=== PATIENT | female | born 1950 | race African-American/Black ===

== ENCOUNTER → 2024-03-24 08:26 | Outpatient (REF) | payer OTHER, SELFPAY | LOC: RAD 08:26 | PROVIDERS: ATTENDING PHYSICIAN Internal Medicine Hematology & Oncology; FAMILY PHYSICIAN Family Medicine | DX: I82.402 Acute embolism and thrombosis of unspecified deep veins of left lower extremity (principal) | CPT/HCPCS: 93971 ==

== ENCOUNTER → 2024-03-27 06:26 | Day surgery (SDC) | payer OTHER, SELFPAY | LOC: GI 06:26 | PROVIDERS: ATTENDING PHYSICIAN Internal Medicine Gastroenterology | DX: Z12.11 Encounter for screening for malignant neoplasm of colon (principal); K64.8 Other hemorrhoids; K57.30 Diverticulosis of large intestine without perforation or abscess without bleeding; D12.0 Benign neoplasm of cecum; D12.2 Benign neoplasm of ascending colon; Z86.010 Personal history of colon polyps | CPT/HCPCS: 45385; 45380; 88305 ==

== ENCOUNTER → 2024-04-07 11:23 | Outpatient (REF) | payer OTHER, SELFPAY | LOC: HWWDC 11:23 | PROVIDERS: ATTENDING PHYSICIAN Family Medicine | DX: Z12.31 Encounter for screening mammogram for malignant neoplasm of breast (principal) | CPT/HCPCS: 77063; 77067 ==

== ENCOUNTER 2025-07-03 18:26 | Emergency (ER) | payer OTHER, SELFPAY ==
[2025-07-03 18:29] VITALS: BP 142/101
--- NOTE | 2025-07-03 23:24 | ED.GENMED ---
History of Present Illness
<Pepito Jacobson MD, Resident - Last Filed: 07/04/25 00:08>
General
Chief Complaint: DVT/Possible Blood Clot
Source: patient
Exam Limitations: none
Time Seen by Provider: 07/03/25 22:54
History of Present Illness
History of Present Illness:
Patient is a 75-year-old female who presents to the emergency department with complaints of left foot swelling and left leg pain for greater than 1 week. She has a history of antiphospholipid antibody syndrome, hypercholesterolemia,
osteoporosis, history of shingles, hypertensive retinopathy, and posterior vitreous detachment. She was in her normal state of health prior to 1 week ago when she started to feel swelling with dull aggravating pain on her inner thigh of her left
leg that started after she went to workout at the gym. The dull pain has been ongoing with waxing and waning depending on physical activity. 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
them on the phone she shared her symptoms of left leg swelling and pain with the office who recommended that she present to the emergency department for further evaluation. She denies any shortness of breath, chest tightness, or chest pain. She
denies any nausea vomiting or diarrhea. She denies any reduction in range of motion.
Past History
<Pepito Jacobson MD, Resident - Last Filed: 07/04/25 00:08>
Past History
ED Past Medical History: None
Social History
Tobacco: Non-smoker
Personal:
Living: with family
Review of Systems
<Pepito Jacboson MD, Resident - Last Filed: 07/04/25 00:08>
Review of Systems
Constitutional: Reports no symptoms
EENT: Reports no symptoms
Respiratory: Reports no symptoms
Cardiac: Reports no symptoms
ABD/GI: Reports no symptoms
: Reports no symptoms
Musculoskeletal: Reports muscle pain ( Pain in the left lower leg inner thigh and calf.)
Skin: Reports no symptoms
Neurological: Reports no symptoms
Endocrine: Reports no symptoms
Hematologic/Lymphatic: Reports no symptoms
Psychiatric: Reports no symptoms
Phy Exam
<Pepito Jacobson MD, Resident - Last Filed: 07/04/25 00:08>
General Physical Exam
General Presentation: well appearing and no apparent distress
General age: appears stated age and appears younger than age
General Skin: warm
General Habitus: normal
General Mental: alert
General Hydration: appears well hydrated
Cardiovascular Exam
Cardiovascular Exam: regular rate/rhythm, no edema, no gallop, no JVD and no murmur
Pulmonary Exam
Pulmonary Exam: lungs clear, no respiratory distress, no rales, chest non tender, no crackles, no rhonchi, no stridor, no wheezing and no cough
Musculoskeletal Exam
Musculoskeletal Exam: full ROM, no edema and neuro vasc intact
Course
<Pepito Jacobson MD, Resident - Last Filed: 07/04/25 00:08>
Orders/Labs/Results
Orders:
Orders
07/03/25 18:33
US Periph Venous LOWER Ext LT Urgent
Comment:
Reason For Exam: swelling, r/o dvt
Vital Signs
Initial and Last Documented VS:
Initial Vital Signs
Temp Pulse Resp BP Pulse Ox
98.3 F 67 18 142/101 99
07/03/25 18:29 07/03/25 18:29 07/03/25 18:29 07/03/25 18:29 07/03/25 18:29
Last Documented Vital Signs
Temp Pulse Resp BP Pulse Ox
98.3 F 67 18 142/101 99
07/03/25 18:29 07/03/25 18:29 07/03/25 18:29 07/03/25 18:29 07/03/25 23:25
<DO Dot Martin Last Filed: 07/03/25 23:29>
Orders/Labs/Results
Orders:
Orders
07/03/25 18:33
US Periph Venous LOWER Ext LT Urgent
Comment:
Reason For Exam: swelling, r/o dvt
Vital Signs
Initial and Last Documented VS:
Initial Vital Signs
Temp Pulse Resp BP Pulse Ox
98.3 F 67 18 142/101 99
07/03/25 18:29 07/03/25 18:29 07/03/25 18:29 07/03/25 18:29 07/03/25 18:29
Last Documented Vital Signs
Temp Pulse Resp BP Pulse Ox
98.3 F 67 18 142/101 99
07/03/25 18:29 07/03/25 18:29 07/03/25 18:29 07/03/25 18:29 07/03/25 23:25
<Pepito Jacobson MD, Resident - Last Filed: 07/04/25 00:08>
*Pulse Oximetry
SaO2: 99
Oxygen Mode of Delivery: Room air
Patient hypoxic: no
*Critical Care Note
Total Time (30-74mins, 75-104mins- exclusive of procedures): 60
<Pepito Jacobson MD, Resident - Last Filed: 07/04/25 00:08>
Update Note
Update Note:
Problem List:
Left lower leg pain
Plan:
left lower leg ultrasound ordered
Differential Diagnoses:
left leg DVT
left leg musculoskeletal pain
Radiology:
- peripheral ultrasound of the left lower limb conducted on 07/03/2025: There is a nonocclusive thrombus within the left mid/distal left femoral vein and peroneal vein which is stable to improved from prior examination in 2023.
EKG: Not applicable
Labs: not applicable
Updates:
physical exam findings do not support evidence of acute DVT occurring. There is no discernible left leg swelling when compared to the right leg. There is no erythema or reduction in palpable pulses. There is strong palpable dorsal pedal pulses.
patient appears nontoxic and is not in distress. Patient is lying comfortably in bed.
Ultrasound of left lower limb negative for acute DVT. There is a nonocclusive thrombus within the left mid/distal left femoral vein and peroneal vein which is stable to improved from prior examination in 2023.
Patient would like to be discharged. There are no barriers that impede the patient for being discharged at the present time.
Contacted the office of her manufacturing teacher with updates during this presentation to the Emergency department.
Patient recommended to follow-up with her manufacturing teacher within 1 week following discharge. Patient is recommended to follow-up with her primary care provider within 1 week following discharge.
ED Attending Note
<Pepito Jacobson MD, Resident - Last Filed: 07/04/25 00:08>
-
Portions of this chart may have been created with voice recognition software.� Occasional wrong word or��sound alike� substitutions may have occurred due to the inherent limitations of voice recognition software.
<Jayro Johnson DO - Last Filed: 07/03/25 23:29>
ED Attending Note
Patient seen and examined by attending physician: Yes
I performed a history and physical exam of patient and discussed management with resident, I reviewed resident's note and agree with documented findings and plan of care.: Yes
ED Attending Note:
Seen with resident examined independently agree with assessment and plan DVT on Eliquis 5 twice daily similar less severe symptoms, no phlegmasia on exam, no cellulitis, ultrasound report noted will touch base with the referring service,
Discharge Plan
Departure
Patient Disposition: Home (Routine Discharge)
Date of Disposition: 07/03/25
Time of Disposition: 23:47
Patient with high blood pressure during this ER visit?: No
Discharge Problem:
Leg DVT (deep venous thromboembolism), chronic
Instructions: Peripheral Vascular (Arterial) Disease (DC), Deep Vein Thrombosis (Blood Clots in the Legs) (DC)
Prescriptions:
No Action
apixaban [Eliquis DVT-PE Treat 30D Start] 5 MG tablets,dose pack
5 - 10 mg PO DIRECTED Qty: 1 0RF
Referrals:
Kyle Friend DO [Active, Hematology / Oncology] - Follow up in 1 week
Cristóbal Qiu DO [Family Provider, Family Practice] - Follow up in 1 week
Interventions
Interventions:
*Risk Screen - Suicide Last Done: 07/03/25 18:29
*General Assessment Last Done: 07/03/25 18:29
*Neglect/Abuse Screening Last Done: 07/03/25 18:29
Discharge Date and Time
Print Language: FRENCH
[2025-07-03 23:40] VITALS: BP 154/86
[2025-07-03 23:46] VITALS: BMI 30.2
== END 2025-07-04 00:15 | disposition home or self-care (01) ==
LOC: EMR 18:26
PROVIDERS: EMERGENCY PHYSICIAN Emergency Medicine; FAMILY PHYSICIAN Family Medicine
DX: I82.502 Chronic embolism and thrombosis of unspecified deep veins of left lower extremity (principal); E78.00 Pure hypercholesterolemia, unspecified
CPT/HCPCS: 99284; 93971

== ENCOUNTER → 2025-09-05 10:37 | Outpatient (REF) | payer OTHER, SELFPAY | LOC: PAVMRI 10:37 | PROVIDERS: ATTENDING PHYSICIAN Physical Medicine & Rehabilitation | DX: M23.91 Unspecified internal derangement of right knee (principal) | CPT/HCPCS: 73721 ==

== ENCOUNTER 2025-10-07 14:30 | Inpatient (IN) | payer OTHER, SELFPAY ==
[2025-10-07 07:02] VITALS: BP 123/68
[2025-10-07 07:19] LABS: Hematocrit 32.7 % (37.0-47.0); Hemoglobin 11.1 g/dL (12.0-16.0); Mean Corp Hgb Conc. 33.9 g/dL (33.0-37.0); Mean Corpuscular Volume 84.9 fL (81.0-99.0); Nucleated Red Blood Cells % 0 %; Platelet Count 255 10^3/uL (130-400); Red Cell Dist. Width 17.0 % (11.5-14.5)
--- NOTE | 2025-10-07 09:13 | ED.GENMED ---
History of Present Illness
<MARGARITA Ty Last Filed: 10/07/25 11:31>
General
Chief Complaint: Change in Mental Status
Source: patient
Exam Limitations: none
Time Seen by Provider: 10/07/25 08:44
History of Present Illness
History of Present Illness:
75-year-old female presents via EMS with generalized weakness and change in mental status. The who is now in the room states that over the past 2 to 3 days she has not seemed herself. She sat on the toilet and was sitting on the toilet for
some time and could not get up. He states that she was not responding to his questions at home. Patient is not providing me any history either. Her thinks she takes Eliquis but is not sure why.
Past History
<MARGARITA Ty Last Filed: 10/07/25 11:31>
Past History
ED Past Medical History: None
Social History
Tobacco: Non-smoker
Personal:
Living: with family
Phy Exam
<MARGARITA Ty Last Filed: 10/07/25 11:31>
Physical Exam
Physical Exam:
General: Well-developed female no acute respiratory distress
Neurologic exam: Unresponsive to verbal stimuli but wakes up to sternal rub. No obvious facial asymmetry. Not following commands.
Heart: Regular rate and rhythm
Lungs: Clear no wheeze
Abdomen is soft nontender
Extremities: No cyanosis or edema
Skin is warm no rash
Course
<MARGARITA Ty Last Filed: 10/07/25 11:31>
Orders/Labs/Results
Orders:
Orders
10/07/25 07:09
Electrocardiogram (*1) Urgent
Reason for Study: Fatigue / Weakness
EKG- Treatment ONCE
10/07/25 07:13
Complete Blood Count/With Diff Urgent
10/07/25 09:12
Electrocardiogram (*1) Urgent
Reason for Study: Fatigue / Weakness
CT Head W/o Iv Contrast Urgent
Comment:
Reason For Exam: change of mental status
EKG- Treatment ONCE
10/07/25 09:24
Comprehensive Metabolic Panel Urgent
10/07/25 10:11
Drug Screen, Urine [Urine Drug Abuse Screen] Urgent
Date Specimen was Collected: 10/07/25
Time Specimen was Collected: 10:10
Urinalysis Reflex To Culture Urgent
Date Specimen was Collected: 10/07/25
Time Specimen was Collected: 10:10
Urine Microscopic Reflex Cult Urgent
Urine Culture Urgent
ANDRES Source: U
Specimen Description:
Date Specimen was Collected: 10/07/25
Time Specimen was Collected: 10:10
Abnormal Lab Results
10/07/25 10/07/25 10/07/25
07:13 09:24 10:11
RBC 3.85 L 10^6/uL
(4.20-5.40)
Hgb 11.1 L g/dL
(12.0-16.0)
Hct 32.7 L %
(37.0-47.0)
RDW 17.0 H %
(11.5-14.5)
Abs Immat Gran (auto) 0.1 H 10^3/uL
(0-0.05)
Absolute Neuts (auto) 7.8 H 10^3/uL
(1.4-6.5)
Absolute Monos (auto) 1.1 H 10^3/uL
(0.1-0.6)
Neutrophils % 75.7 H %
(42.2-75.2)
Lymphocytes % 12.4 L %
(20.5-51.1)
Monocytes % 10.5 H %
(1.7-9.3)
Carbon Dioxide 17 L mmol/L
(22-30)
BUN 33 H mg/dl
(7-17)
Glucose 109 H mg/dl
(70-99)
AST 42 H U/L
(14-36)
Urine Ketones 2+ A
(Negative)
Ur Occult Blood Reflex 1+ A
(Negative)
Urine Bilirubin 1+ A
(Negative)
Urine RBC 3-6 A /HPF
(0-2)
Urine Bacteria (Reflex) Moderate A
(Negative)
Urine Albumin (Reflex) 2+ A
(Neg - Trace)
10/07/25 07:13
10/07/25 09:24
Vital Signs
Initial and Last Documented VS:
Initial Vital Signs
Temp Pulse Resp BP Pulse Ox
98.0 F 87 16 123/68 98
10/07/25 07:02 10/07/25 07:02 10/07/25 07:02 10/07/25 07:02 10/07/25 07:02
Last Documented Vital Signs
Temp Pulse Resp BP Pulse Ox
97.7 F 80 15 139/65 97
10/07/25 10:13 10/07/25 10:00 10/07/25 10:00 10/07/25 10:00 10/07/25 09:45
<Jigar Shelton, DO - Last Filed: 10/07/25 09:35>
Orders/Labs/Results
Orders:
Orders
10/07/25 07:09
Electrocardiogram (*1) Urgent
Reason for Study: Fatigue / Weakness
EKG- Treatment ONCE
10/07/25 07:13
Complete Blood Count/With Diff Urgent
10/07/25 09:12
Electrocardiogram (*1) Urgent
Reason for Study: Fatigue / Weakness
CT Head W/o Iv Contrast Urgent
Comment:
Reason For Exam: change of mental status
EKG- Treatment ONCE
10/07/25 09:24
Comprehensive Metabolic Panel Urgent
10/07/25 10:11
Drug Screen, Urine [Urine Drug Abuse Screen] Urgent
Date Specimen was Collected: 10/07/25
Time Specimen was Collected: 10:10
Urinalysis Reflex To Culture Urgent
Date Specimen was Collected: 10/07/25
Time Specimen was Collected: 10:10
Urine Microscopic Reflex Cult Urgent
Urine Culture Urgent
ANDRES Source: U
Specimen Description:
Date Specimen was Collected: 10/07/25
Time Specimen was Collected: 10:10
Abnormal Lab Results
10/07/25 10/07/25 10/07/25
07:13 09:24 10:11
RBC 3.85 L 10^6/uL
(4.20-5.40)
Hgb 11.1 L g/dL
(12.0-16.0)
Hct 32.7 L %
(37.0-47.0)
RDW 17.0 H %
(11.5-14.5)
Abs Immat Gran (auto) 0.1 H 10^3/uL
(0-0.05)
Absolute Neuts (auto) 7.8 H 10^3/uL
(1.4-6.5)
Absolute Monos (auto) 1.1 H 10^3/uL
(0.1-0.6)
Neutrophils % 75.7 H %
(42.2-75.2)
Lymphocytes % 12.4 L %
(20.5-51.1)
Monocytes % 10.5 H %
(1.7-9.3)
Carbon Dioxide 17 L mmol/L
(22-30)
BUN 33 H mg/dl
(7-17)
Glucose 109 H mg/dl
(70-99)
AST 42 H U/L
(14-36)
Urine Ketones 2+ A
(Negative)
Ur Occult Blood Reflex 1+ A
(Negative)
Urine Bilirubin 1+ A
(Negative)
Urine RBC 3-6 A /HPF
(0-2)
Urine Bacteria (Reflex) Moderate A
(Negative)
Urine Albumin (Reflex) 2+ A
(Neg - Trace)
10/07/25 07:13
10/07/25 09:24
Vital Signs
Initial and Last Documented VS:
Initial Vital Signs
Temp Pulse Resp BP Pulse Ox
98.0 F 87 16 123/68 98
10/07/25 07:02 10/07/25 07:02 10/07/25 07:02 10/07/25 07:02 10/07/25 07:02
Last Documented Vital Signs
Temp Pulse Resp BP Pulse Ox
97.7 F 80 15 139/65 97
10/07/25 10:13 10/07/25 10:00 10/07/25 10:00 10/07/25 10:00 10/07/25 09:45
<Ra Antoine PA-C - Last Filed: 10/07/25 11:31>
MDM/Problems Addressed
Differential Diagnosis Includes:
Patient with change in mental status. Will check labs urine CT EKG. Patient does respond to sternal rub but falls asleep shortly after that. Will check drug screen. Review of chart demonstrates she was had a DVT of the left leg and is on Eliquis
for that.
<Ra Antoine PA-C - Last Filed: 10/07/25 11:31>
*Pulse Oximetry
SaO2: 98
Oxygen Mode of Delivery: Room air
Patient hypoxic: no
*Critical Care Note
Total Time (30-74mins, 75-104mins- exclusive of procedures): Not Applicable
<Ra Antoine PA-C - Last Filed: 10/07/25 11:31>
Update Note
Update Note:
Patient reexamined. She did wake up at some point was able to answer my questions and follow commands but did fall back asleep. Vital signs remained stable. Drug screen negative CT of the head demonstrates bilateral areas of hypoattenuation to
suggest acute or subacute ischemia. Given anticoagulants on board and duration of symptoms, she is not a TNK candidate
Discussed with emergency room attending who saw the patient. Admit to hospitalist. Neurologist made aware as well
ED Attending Note
<Ra Antoine PA-C - Last Filed: 10/07/25 11:31>
-
Portions of this chart may have been created with voice recognition software.� Occasional wrong word or��sound alike� substitutions may have occurred due to the inherent limitations of voice recognition software.
<Jigar Shelton DO - Last Filed: 10/07/25 09:35>
ED Attending Note
Patient seen and examined by attending physician: Yes
I performed the substantive portion of visit, reviewed & personally made and approve the management plan that is documented in note by myself or SHAYY.: Yes
ED Attending Note:
I evaluated the patient at bedside. The patient primarily keeps her eyes closed. She will slightly turn her head when her speaks. does not have a med list but thinks she may be on Eliquis. She seems to resist certain motions when
I examine her. She forcefully closes her eyes when I try to open the eyelids. Patient was started on Eliquis in June related to DVT.
Discharge Plan
Departure
Patient Disposition: Admit
Date of Disposition: 10/07/25
Time of Disposition: 11:30
Presentation/result/management discussed w/ accepting MD/DO: Hospitalist
Discharge Problem:
Altered mental status
Prescriptions:
No Action
apixaban [Eliquis DVT-PE Treat 30D Start] 5 MG tablets,dose pack
5 - 10 mg PO DIRECTED Qty: 1 0RF
Referrals:
UNKNOWN - PT NOT,INTERVIEWE [Family Provider]
Interventions
Interventions:
*General Assessment Last Done: 10/07/25 07:02
*Neglect/Abuse Screening Last Done: 10/07/25 07:02
*Risk Screen - Suicide (C-SSRS) Last Done: 10/07/25 07:08
Discharge Date and Time
Print Language: ALBANIAN
[2025-10-07 09:56] LABS: ALT (SGPT) 16 U/L (0-35); AST (SGOT) 42 U/L (14-36); Albumin 4.3 g/dl (3.5-5.0); Alkaline Phosphatase 40 U/L (38-126); Blood Urea Nitrogen 33 mg/dl (7-17); Calcium 9.7 mg/dl (8.4-10.2); Carbon Dioxide 17 mmol/L (22-30); Chloride 104 mmol/L (98-107); Glucose 109 mg/dl (70-99); Potassium 3.9 mmol/L (3.5-5.1); Sodium 136 mmol/L (135-145); Total Protein 7.2 g/dl (6.3-8.2); eGFR 58.75
[2025-10-07 10:00] VITALS: BP 139/65
[2025-10-07 10:13] VITALS: BMI 24.2
[2025-10-07 10:19] LABS: Urine Character Clear (Clear)
[2025-10-07 10:30] LABS: Urine Squamous Cell >30 /LPF (Few)
[2025-10-07 11:00] VITALS: BP 129/66
--- NOTE | 2025-10-07 11:47 | CON.NEURO4 ---
Addendum entered and electronically signed by Amado Cannon MD 10/07/25 17:09:
Studies reviewed.
I have personally examined the patient. I reviewed and agree with the NAPPER FIXER's Note.
My addenda:
Awake, bradyphrenic, minimally interactive. No acute distress.
Speech minimal output.
Follows 1-step requests w/o difficulty. No tremor.
Extra-ocular movements grossly intact.
Facial movements full and symmetric. Hearing intact to normal conversational volume.
Spontaneously has UE movements bilaterally.
Neck: full ROM.
Chest: no dyspnea
Heart: no JVD
Ext: (-) Clubbing, (-) Cyanosis, (-) Edema
IMPRESSIONS/RECOMMENDATIONS:
Abrupt onset of decline in mental status more consistent with abulia. Patient's onset of symptoms was outside possible treatment with either tenecteplase or mechanical thrombectomy.
CT of head evidence of bifrontal medial acute ischemic lesions consistent with stroke. CTA was suggestive of significant bilateral A1 stenoses
When possible, restart the patient's apixaban as the onset of stroke may have been greater than 24 hours
Check lipid profile and provide lipid-lowering agent if LDL greater than 70
Goal of normotension as the patient's onset of symptoms was greater than 24 hours
Rehabilitation evaluations and treatment
Medical educational materials to be provided
No indication at this time for transthoracic echocardiogram
DVT prophylaxis either with the use of apixaban or enoxaparin
D/W patient / family
All questions answered.
Will continue to follow patient.
Original Note:
Documented by User: Mami Miller NP 10/07/25 15:44
Consultation - Neurology 4
-
CONSULTING PHYSICIAN: Amado Cannon MD
REFERRING PHYSICIAN: YOLY/Tyrell Antoine
DICTATED BY: SANDRA Lyman
DATE/TIME OF REQUEST: 10/07/25
DATE/TIME OF CONSULTATION: 10/07/25
Reason for Consultation: Altered mental status
History of Present Illness:
This is a 75-year-old female who has presented to the hospital with report of altered mental status. Patient's spouse at bedside reports that about three days ago on 10/04/25 she woke up in the morning and was not acting like her normal self. She
wasn't doing her usual activities, not answering all of her spouses questions, and she was using the bathroom frequently. He notes that these symptoms progressed and she has barely been eating/drinking. This morning she was also lethargic and weak,
requiring help up off of the toilet this morning. CT head was obtained on arrival in the ER and is suggestive of hypoattenuation in bilateral basal ganglia. NIHSS is currently 2 for lethargy and RLE drift. She is not a candidate for TNK/IAT due to
being outside of the time window. She has been taking Eliquis for a DVT, her spouse notes she was off of this at some point but thinks she has been taking it recently. Patient still drives but typically her spouse does the driving. She helps with
the finances. She is independent with ADLs and walks without an assistive device.
Past Medical History: Antiphospholipid antibody syndrome (apixaban), DVT, HTN, HLD, osteoporosis, shingles, HTN retinopathy and posterior vitreous detachment
Surgical History: Breast cyst removal.
Family History: Reviewed and noncontributory.
Social History: Denies tobacco, alcohol, and illicit drug use.
Allergies: No known allergies.
Home Medications: See below.
Review of Symptoms:
Patient denies any fever, headache, chest pain, shortness of breath, GI or symptoms.
�Per the HPI.�All systems are reviewed negative except above.
Physical Exam:
The patient is afebrile, abdomen is nondistended, breathing is unlabored, skin is warm and dry, no edema.
NIH Stroke Scale:
I performed the NIH stroke scale on the patient on 10/07/25 at 1200. The patient scored 4 points on the NIH stroke scale assessment, which were assigned as follows: See below.
Neurologic Examination:
The patient is lethargic. Opens eyes to loud voice. She is oriented x3. She is able to follow some one-step commands and answer some questions appropriately. Answers some questions with head nodding. There is mild aphasia/lack of verbal response.
No dysarthria. Passive eye opening resistance equally bilaterally. On cranial nerve assessment, pupils are 3 mm bilateral, round and reactive to light and accommodation. Visual lujan are full to finger wave. Extraocular movements are intact. Facial
sensations are intact and bilaterally symmetrical, there is no facial asymmetry. Hearing is intact bilaterally to normal conversation volume. Tongue palate and uvula are midline. Sternocleidomastoid strengths are full bilaterally. Motor strengths
are 5/5 bilateral upper and lower extremities on medical research Two Dot scale. There is no drift or involuntary movement noted. Deep tendon reflexes are semi brisk but 2+ bilateral upper and lower extremities and Babinski is absent bilaterally.
NALINI double simultaneous due to aphasia. Coordination is intact by finger to nose bilaterally.
Lab Results: See below.
Neuro Imaging:
1. CT head 10/07/25: Regions of hypoattenuation at the anterior aspects of the bilateral basal ganglia, midline anterior to the frontal horns of the lateral ventricles, and at the inferomedial aspect of the left lower lobe. The leading consideration
would be acute or subacute ischemia, although in an atypical distribution. Left mastoid effusion.
2. CTA head/neck 10/07/25: High-grade stenosis or occlusion of the A1 segments of the bilateral anterior cerebral arteries with significantly diminished flow in the bilateral anterior cerebral arteries further distally. Small caliber bilateral
posterior cerebral arteries. Multifocal mild to moderate stenoses of the bilateral middle and posterior cerebral arteries. No high-grade stenosis or occlusion in the arterial vasculature in the neck.
Differentials for the patient's presentation include:
1. Likely an a subacute ischemic stroke in bilateral basal ganglia as suggested by CT had imaging producing excessive drowsiness and altered mental status.
2. CTA head/neck is suggestive of high-grade stenosis vs occlusion of b/l A1 segments of b/l KYLE.
3. Antiphospholipid antibody syndrome on apixaban. DVT in June while on apixaban?
Patient has the following risk factors for their symptoms: DVT while on apixaban? Stenosis b/l A1, age.
IV Tenecteplase/IAT candidacy: She is not a candidate for TNK/IAT due to being outside of the time window.
Recommendations:
-Continue apixaban; if not tolerating oral meds, will need a heparin drip no boluses.
-If MRI confirms a stroke, will need consideration for switching to an alternative oral anticoagulation.
-Goal normotension.
-MRI brain noncontrast pending.
-TTE pending.
-LDL goal <70. LDL is pending. Initiate atorvastatin 40mg daily.
-Goal normoglycemia, hbA1c is pending.
-NIHSS and neurological checks per unit guidelines.
-Provide patient's spouse with a stroke education packet.
-PT/OT/ST evaluations.
Discussed patient care with: Dr. Cannon, the patient, patient's spouse
Vital Signs and Labs
-
Vital Signs and Labs:
Vital Signs
Temp Pulse Resp BP Pulse Ox
97.7 F 80 15 139/65 97
10/07/25 10:13 10/07/25 10:00 10/07/25 10:00 10/07/25 10:00 10/07/25 09:45
Lab Results
10/07/25 07:13
10/07/25 09:24
Sodium 136 mmol/L (135-145) 10/07/25 09:24
Potassium 3.9 mmol/L (3.5-5.1) 10/07/25 09:24
BUN 33 mg/dl (7-17) H 10/07/25 09:24
Glucose 109 mg/dl (70-99) H 10/07/25 09:24
Calcium 9.7 mg/dl (8.4-10.2) 10/07/25 09:24
Ur Buprenorphine Negative (Negative) 10/07/25 10:11
Medications
-
Home Medications
�Medication �Instructions �Recorded
apixaban 5 mg tablet (Eliquis) 5 mg PO BID 10/07/25
ascorbic acid (vitamin C) 250 mg 250 mg PO DAILY 10/07/25
tablet (Vitamin C)
NIH Stroke Score
Subsequent NIH Scale
Date of Subsequent NIH Scale: 10/07/25
Time of Subsequent NIH Scale: 12:00
NIH Stroke Score
Level of Consciousness: 1 - Arousable
LOC Questions: 0-Answers both correctly
LOC Commands: 0-Performs both correctly
Best Horizontal Gaze: 0-Normal
Visual Lujan: 0=Normal, no visual loss
Facial Palsy: 0=Normal, symmetrical
Motor - Right Arm: 0=No drift 10 seconds
Motor - Left Arm: 0=No drift 10 seconds
Motor - Right Le-Drift < 5 seconds
Motor - Left Le-No drift 5 seconds
Limb Ataxia: 0-Absent
Sensation: 0-Normal
Best Language: 1-Mild aphasia
Dysarthria: 0-Normal
Extinction and Inattention: 0-No abnormality (NALINI)
NIH Total Score:: 3
Modified [place] (mRS) Score
Modified [place] Scale (mRS): Moderately severe disability. Unable to attend to bodily needs/walk.
Score: 4
Alteplase Contraindication
Inclusion and Exclusion criteria reviewed: Yes
Reasons for NON-Tx with Thrombolytics ABSOLUTE Exclusions: Greater than 4.5 hrs from onset of sxs

Documented by User: Amado Cannon MD 10/07/25 16:57
NIH Stroke Score
NIH Stroke Score
NIH Total Score:: 3
Modified [place] (mRS) Score
Score: 4
[2025-10-07 12:00] VITALS: BP 143/73
--- NOTE | 2025-10-07 13:43 | HPS.HSE ---
Addendum entered and electronically signed by Sunday Lovett MD 10/07/25 21:25:
Attending Addendum-
I performed a history and physical exam of the patient and discussed his management with the resident. I reviewed the resident's note and agree with the documented findings and plan of care CC/HPI-patient is non responsive and not following
commands. H/O from .3 day history of fatigue, decreased responsiveness, apathy, and not speaking full sentences. Patient sat on toilet all night without moving which prompted to call ambulance. is a relatively poor historian.
unable to perferm a ROS Exam- vitals reviewed in EMR GEN-NAD 'sleeping' Heart SM @ RUSB RRR Lungs clear no W/R/R abd soft NT ND pos BS LE no edema Neuro- not responding to verbal stim, only painful stim, not following commands
Plan:
# CIMS likely acute to subacute CVA
-CT head-Regions of hypoattenuation at the anterior aspects of the bilateral basal ganglia, midline anterior to the frontal horns of the lateral ventricles, and at the inferomedial aspect of the left lower lobe. The leading consideration would be
acute or subacute ischemia
-CTA H/N- High-grade stenosis or occlusion of the A1 segments of the bilateral anterior cerebral arteries with significantly diminished flow in the bilateral anterior cerebral arteries further distally. Small caliber bilateral posterior cerebral
arteries. Multifocal mild to moderate stenoses of the bilateral middle and posterior cerebral arteries.
-PT OT speech c/s, stroke order set
-c/s neuro stat
-check lipid panel-start HIS if LDL <70
-no DAPT per neuro
-start dvtp
-no indication for thrombectomy or TNK (out of window)
-check MRI, ECHO
-avoid hypotension and hypoglycemia- start D5LR
-NS eval
# Antiphospholipid Syndrome
-h/o LLE DVT
-patient inconsistent with taking Eliquis
-restart Eliquis vs warfarin when able
# Dysphagia
-cont NPO
-hopefully able to advance diet when more alert
# H/O HTN/HLD- noncompliant with meds
DVTp-lovenox
Code-Full per
ACP
Patient unable to consent to discuss, was with /POA, time spent explanation of advance directives, changes in health status, patient�s health care wishes if the patient becomes unable to make health decisions, goals of care, code status, and
prognosis 'yeah i think she would want all that'- 16 minutes
Time spent coordinating care, review of plan of care with resident, personally reviewed previous records in EMR, med rec, labs, radiology, d/w nursing, family total time documented is exclusive of any additional time listed that was spent in advance
care planning discussion -�75 minutes
Original Note:
Family Physician
-
Family Physician: Stephanie Sibley MD
previously Mike Ryan NP
Chief Complaint
-
AMS
History of Present Illness
75yoF PMH APS on eliquis, HTN, HLD presenting with AMS.
History obtained through chart review and from in room. He reports pt abruptly acting abnormal 3 days ago. He describes his seeming off and more tired than usual. Last conversation with full words 4 days ago, otherwise said she
nods yes or no. brought her in since he sated that yesterday overnight she was on the toilet and was not leaving, concerning him. denies noticing facial asymmetry, weakness on 1 side. He explained that she is in need of L knee
surgery and has been in PT for it, so she has trouble getting around and seems weaker on that side at baseline. He reports she was awake 15min ago and has been arousable before I came in. He explained that she has been 'off' with worsening symptoms
over the 3 days, not eating or drinking.
Medical History
Past Medical History
Past Medical History: Reports HTN (HTN retinopathy), Hypercholesterolemia and Other (Antiphospholipid syndrome w DVT 2019, chronic LLE DVT, posterior vitreous detachment, )
Past Surgical History: Reports Gynocological (breast cyst removal)
Social History
Unable to obtain full social history at this time due to: Other (lethargic, AMS; gathered from chart and )
Tobacco: Non-smoker
Alcohol: Occasional
Drug: None
Personal:
Living: With Family (w )
Family History
Family History: Not pertinent
Allergies / Home Medications
Allergies reflects when Allergies were last updated in [employer].
Home Medications with original date entered in [employer]
Allergy/Medication List:
Allergies
Allergy/AdvReac Type Severity Reaction Status Date / Time
No Known Drug Allergies Allergy Unknown Verified 07/03/25 18:29
Home Medications
apixaban 5 mg tablet (Eliquis) 5 mg PO BID 10/07/25
ascorbic acid (vitamin C) 250 mg tablet (Vitamin C) 250 mg PO DAILY 10/07/25
If medication reconciliation has not been performed, why?: Unresponsive
Review of Systems
-
Unable to obtain full review of systems at this time due to: Other (AMS, lethargic)
History Source: Family
A 12 point ROS was completed and negative except as noted: Yes
Physical Exam
Vital Signs
Vital Signs
Temp Pulse Resp BP Pulse Ox
97.7 F 80 15 139/65 97
10/07/25 10:13 10/07/25 10:00 10/07/25 10:00 10/07/25 10:00 10/07/25 09:45
Physical Exam
General: Well Developed, Well Nourished, No Apparent Distress and Other (lethargic, unarousable)
HEENT: NormoCephalic, Anicteric, Moist mucous membranes and Atraumatic
Respiratory: Clear and Non Labored Respirations
Cardiac: S1/S2 (extra sound noted) and Regular Rhythm
GI: Soft, Non Tender and Non Distended
Musculoskeletal: No Clubbing, No Cyanosis and No Edema
Skin: Warm and Dry
Neuro: DTR's Intact & Symmetrical, Sedated (completes some actions, does not open eyes to voice but resists opening of eyes to light) and Other
Laboratory Results
-
10/07/25 07:13
10/07/25 09:24
Laboratory Results
Total Bilirubin 0.7 mg/dl (0.2-1.3) 10/07/25 09:24
AST 42 U/L (14-36) H 10/07/25 09:24
ALT 16 U/L (0-35) 10/07/25 09:24
Alkaline Phosphatase 40 U/L (38-126) 10/07/25 09:24
Impression/Plan
-
IMPRESSION:75yoF PMH APS on eliquis, HLD, HTN presenting with acute stroke of bilateral KYLE.
AFVSS. Pt has been demonstrating personality differences, apathy, and lethargy for 3 days, aligning with the ischemic area found on CT of frontal lobes in KYLE area. Hx antiphospholipid syndrome unknown adherence to eliquis based on outpt visits. Hx
HLD total cholesterol 300 LDL 231 last lipid panel in June, refused statin. Prediabetic last A1c 5.7 06/2025 managing with lifestyle. Follows with hematology, last seen Dr Friend 11/2024. Not TNK or thrombectomy candidate due to chronicity
fo 3 days. Establish cause of stroke. Echo pending. MRI pending.
PLAN:
#acute ischemic stroke
- Neurology consult
- Pending neuro recs: continue on eliquis; consider aspirin, plavix
- Echo pending
- normotensive goal
- PT/OT/ST eval recommend strict NPO no oral medications
- Normoglycemia goal. Currently strict NPO, D5LR
- MRI pending
#HLD
- start statin
#APS
- If tolerating PO, continue eliquis. Otherwise, start heparin drip
#HTN
- monitor BP
Code: Full
Diet: NPO
--- NOTE | 2025-10-07 15:45 | PTOTSP ---
Speech Language Pathology
Pt seen for language evaluation. Pt appeared to have mod-severe receptive aphasia and severe expressive aphasia. No verbalizations noted during evaluation despite cueing. Eyes remained closed for majority of evaluation until cough response noted
post thin liquids. Pt able to visually locate HOUSEKEEPER AND LAUNDRY ASSISTANT in different positions around bed, but was not able to fluidly visually track. 1-step commands= 30%. Simple yes/no questions= responses 40% of the time. Did not attempt to answer orientation
questions. Responded to noxious stimulation in RLE nailbeds with no response to other extremities.
Pt also seen for clinical bedside swallow evaluation. P.O. trials of puree and thin liquids via straw provided, as pt with labial movements in response to ice to lips. Immediate weak cough response with thin liquids via straw. No overt coughing
with puree, but when asked if it was difficult to swallow, pt shook head yes. Further P.O. trials deferred given response to provided P.O. and decreased alertness.
Recommend:
(1) Strict NPO
(2) Non-oral meds
(3) Not appropriate for Aspiration Risk Hydration Protocol (ARHP) at this time
(4) HOUSEKEEPER AND LAUNDRY ASSISTANT to continue to follow for aphasia and dysphagia tx
[2025-10-07 17:14] LABS: HDL Cholesterol 52 mg/dl; LDL Cholesterol, Calculated 232 mg/dl; Very Low Density Lipoprotein 16 mg/dl (0-30)
[2025-10-07] MEDS: LIPITOR PO (18:29)
[2025-10-07 18:31] VITALS: BP 146/80
[2025-10-07] MEDS: LOVENOX 40 MG SC (18:40)
[2025-10-07] MEDS: D5LR 1000 IV (18:41)
[2025-10-07 23:29] VITALS: BP 143/79
[2025-10-08] VITALS (9 sets, daily range): BP systolic 142–180; BP diastolic 78–104; PULSE 81
[2025-10-08] MEDS: D5LR 1000 IV ×2 (04:14→16:14)
--- NOTE | 2025-10-08 08:25 | PTOTSP ---
Speech Language Pathology
Pt seen for therapeutic reassessment of speech/language deficits. Pt awake upon arrival, verbalizing, although slow. Flat affect noted. Decreased memory noted, with pt stating she lived in [place]. When reminded she lived in [place], pt stated
'[facility] [place] Language evaluated via the Quick Aphasia Battery (QAB), form 1. Pt with an overall score of 8.58, indicative of overall mild deficits. Pt with the following scores (severity levels) on the following subtests: word
comprehension= 10.00 (WNL), sentence comprehension= 6.25 (mod), word finding= 7.00 (mod), grammatical construction= 9.50 (WNL), speech motor programming= 10.00 (WNL), repetition= 10.00 (WNL), reading= 10.00 (WNL).
Pt also seen for dysphagia tx. Self-fed P.O. trials of puree, regular solids, and thin liquids. Adequate mastication, bolus formation, and A-P transit noted with no oral residue. Brief cough following 1st sip of thin liquids via cup. However, no
further coughing noted with either cup or straw sips.
Recommend:
(1) Initiate regular solids/thin liquids
(2) Aspiration precautions: set up assist, slow rate, partial supervision
(3) Meds as tolerated
(4) COMMERCIAL PRODUCTION EDITOR to continue to follow to ensure diet tolerance. If any concerns, will complete instrumental swallowing assessment. Will also follow for cognitive-linguistic tx
[2025-10-08 08:27] LABS: Hematocrit 28.7 % (37.0-47.0); Hemoglobin 9.6 g/dL (12.0-16.0); Mean Corp Hgb Conc. 33.4 g/dL (33.0-37.0); Mean Corpuscular Volume 83.7 fL (81.0-99.0); Platelet Count 204 10^3/uL (130-400); Red Cell Dist. Width 16.8 % (11.5-14.5)
--- NOTE | 2025-10-08 09:14 | W.PN.HOSP.TC ---
Addendum entered and electronically signed by Sunday Lovett MD 10/08/25 20:35:
Attending Addendum-I saw and evaluated the patient. I reviewed the resident�s note and agree with findings and plan as documented in the resident�s note. Sub: Awake and alert. Doesn't remember events from yesterday. Feels fatigued. Denies
neurological sxs ERICKSON vision changes W/N/T in any extremity. Full 12 point ROS reviewed and negative except as documented Exam- vitals reviewed in EMR GEN-NAD Heart SM @ apex RRR Lungs clear no W/R/R abd soft NT ND pos BS LE no edema Neuro- AAOx3
following commands Psych-apathetic
Plan:
# Acute CVA
-CT head-Regions of hypoattenuation at the anterior aspects of the bilateral basal ganglia, midline anterior to the frontal horns of the lateral ventricles, and at the inferomedial aspect of the left lower lobe. The leading consideration would be
acute or subacute ischemia
-CTA H/N- High-grade stenosis or occlusion of the A1 segments of the bilateral anterior cerebral arteries with significantly diminished flow in the bilateral anterior cerebral arteries further distally. Small caliber bilateral posterior cerebral
arteries. Multifocal mild to moderate stenoses of the bilateral middle and posterior cerebral arteries.
-MRI Brain 10/08-Acute infarcts at the anterior aspects of the bilateral basal ganglia and the anteromedial bilateral frontal lobes. Other smaller scattered acute infarcts of the superomedial bilateral frontal lobes and the left parietal lobe.
Infarctions are centered within the bilateral anterior cerebral artery distribution.
-PT OT speech
-place physiatry c/s for acute rehab
-appreciate neuro input
-start high intensity statin
-restart eliquis-patient states that she takes it religiously- c/s hemeonc for possible transition to Coumadin for APS
-no indication for thrombectomy or TNK (out of window)
-ECHO 10/08
1. Ejection fraction is 60-65% by visual assessment.
2. Right ventricular size and systolic function are within normal limits.
3. Moderate mitral valve regurgitation.
-avoid hypotension and hypoglycemia-cont D5LR
# Antiphospholipid Syndrome
-h/o LLE DVT
-patient states she is consistent with taking Eliquis
-restart Eliquis
-c/s heme onc for eval re possible transition to Coumadin
# Dysphagia
-speech therapy
-advance diet as now awake and alert
# H/O HTN/HLD-restart losartan, started HI lipitor
DVTp-eliquis
Code-Full per
Dispo-acute rehab vs SNF in 24 to 48 hours
Time spent coordinating care, review of plan of care with resident, personally reviewed records in EMR, med rec, consults, notes, labs, radiology, d/w nursing � 52 mins
Original Note:
Today's Communication/Plan
-
Speech re-eval recommends diet and PO medications
Atorvastatin 80mg, restart home losartan, continue eliquis
Hematology consult for APS eliquis failure
Assessment / Plan
Assessment / Plan
IMPRESSION:75yoF PMH APS on eliquis, HLD, HTN presenting with acute stroke of bilateral KYLE.
AFVSS. Pt has been demonstrating personality differences, apathy, and lethargy for 3 days, aligning with the ischemic area found on CT of frontal lobes in KYLE area. Hx antiphospholipid syndrome unknown adherence to eliquis based on outpt visits. Hx
HLD total cholesterol 300 LDL 231 last lipid panel in June, refused statin. Prediabetic last A1c 5.7 06/2025 managing with lifestyle. Follows with hematology, last seen Dr Friend 11/2024. Not TNK or thrombectomy candidate due to chronicity
fo 3 days. Establish cause of stroke. Echo pending. MRI pending.
Today, AFVSS. Pt more awake today answering questions. She reports taking eliquis every day as well as losartan 100mg. She endorses known heart murmur. Feels foggy without more symptoms. Hematology consulted for possible eliquis failure, will
evaluate tomorrow for heparin bridge to coumadin. MRI demonstrates acute and chronic infarcts. Speech re-evaluated and able to have diet and PO medications. Resume statin, eliquis.
Brain MRI: Acute infarcts at the anterior aspects of the bilateral basal ganglia and the anteromedial bilateral frontal lobes. Other smaller scattered acute infarcts of the superomedial bilateral frontal lobes and the left parietal lobe. Infarctions
are centered within the bilateral anterior cerebral artery distribution.
Chronic lacunar infarcts of the bilateral cerebellar hemispheres.
PLAN:
#acute ischemic stroke
- Neurology consult
- Pending neuro recs: continue on eliquis currently; possible failure
- Echo pending
- normotensive goal; restart home losartan
- PT/OT/ST eval : reevaluated able to have diet and resume PO medications
- Normoglycemia goal
- MRI reveals
#HLD
- start statin 80mg atorvastatin given outpt total chol 300
#APS
- If tolerating PO, continue eliquis. Consider heparin drip to coumadin
#HTN
- monitor BP
#dysphagia
- resolved today.
Code: Full
Diet: cholesterol lowering
Anticipated Discharge: 24 - 48 hours
Subjective/Interval History
-
Date of Service: October 08, 2025
Pt awake this morning feeling well. She reports foggy mind but no other symptoms. Denies headache. Follows commands.
Pt reports known heart murmur.
Objective Data
-
Labs:
Laboratory Results
10/08/25
08:05
WBC 6.7
Hgb 9.6 L
Hct 28.7 L
Plt Count 204
Sodium Pending
Potassium Pending
Chloride Pending
Carbon Dioxide Pending
BUN Pending
Creatinine Pending
Glucose Pending
Calcium Pending
Vital Signs:
Vital Signs
Temp Pulse Resp BP Pulse Ox
98.1 F 75 16 168/104 98
10/08/25 07:25 10/08/25 07:25 10/08/25 07:25 10/08/25 07:25 10/08/25 07:25
Review of Systems
-
History Source: Patient
All other systems: Reviewed and negative
Physical Exam
-
General: Well Developed, Well Nourished, No Apparent Distress and Comfortable
HEENT: Normocephalic, Atraumatic and Moist Mucous Membranes
Respiratory: Clear to Auscultation and Non Labored Respirations
Cardiac: Regular Rhythm, S1/S2 and Murmur
GI: Soft, Nontender and Nondistended
Musculoskeletal: No Edema
Skin: Warm and Dry
Neuro: AO x 3 and Nonfocal/Grossly Intact (most answers questions with head nods with some words, apathetic facial expression but no gross deficit; unclear baseline)
Psych: Calm
[2025-10-08 09:20] LABS: Blood Urea Nitrogen 20 mg/dl (7-17); Calcium 8.8 mg/dl (8.4-10.2); Carbon Dioxide 23 mmol/L (22-30); Chloride 107 mmol/L (98-107); Estimated Creatinine Clearance 57 ml/min; Glucose 122 mg/dl (70-99); Potassium 3.5 mmol/L (3.5-5.1); Sodium 136 mmol/L (135-145); eGFR > 60.00
[2025-10-08] MEDS: ELIQUIS 5 MG PO ×2 (10:36→20:26)
[2025-10-08] MEDS: COZAAR 100 MG PO (11:23)
[2025-10-08] MEDS: D5LR IV (11:43)
[2025-10-08 11:53] LABS: Ferritin 577.0 ng/ml (11.1-264.0)
[2025-10-08 12:25] LABS: Folate 2.2 ng/ml (2.76-20); Vitamin B12 > 1000 pg/ml (239-931)
--- NOTE | 2025-10-08 12:35 | CM ---
CM met with patient and bedside and contacted her spouse, Vincenzo Asencio by phone to complete initial assessment. Patient admitted with CVA. She lives with her in a 2 story house with 5-6 steps to enter. Her bedroom is on the 2nd floor and she
has full bathrooms on 1st and 2nd floors. 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 She was not using any DME. 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 According to her , patient had
functional decline over past week. She recently had problems with her knee and was planning to start outpatient PT. Patient's works full-time outside the home Mon- Fri. The best contact #for her is his
cell#[phone]. PT/OT Speech are following patient. CM discussed Acute rehab placement with patient's .
PCP: Dr. Stephanie Sibley
Pharmacy:[facility]
Plan: Acute Rehab placement when stable
[2025-10-08 13:49] LABS: Glycohemoglobin (HgbA1c) 6.0 % (4.0-5.9)
[2025-10-08] MEDS: LIPITOR 80 MG PO (17:34)
[2025-10-09] VITALS (8 sets, daily range): BP systolic 143–181; BP diastolic 61–108; PULSE 89–91; O2SAT 97
[2025-10-09] MEDS: D5LR 1000 IV (00:28)
[2025-10-09 06:59] LABS: Hematocrit 31.0 % (37.0-47.0); Hemoglobin 10.5 g/dL (12.0-16.0); Mean Corp Hgb Conc. 33.9 g/dL (33.0-37.0); Mean Corpuscular Volume 84.7 fL (81.0-99.0); Platelet Count 217 10^3/uL (130-400); Red Cell Dist. Width 16.3 % (11.5-14.5)
[2025-10-09 07:29] LABS: Blood Urea Nitrogen 15 mg/dl (7-17); Calcium 8.6 mg/dl (8.4-10.2); Carbon Dioxide 25 mmol/L (22-30); Chloride 102 mmol/L (98-107); Estimated Creatinine Clearance 50 ml/min; Glucose 128 mg/dl (70-99); HDL Cholesterol 42 mg/dl; LDL Cholesterol, Calculated 189 mg/dl; Potassium 3.3 mmol/L (3.5-5.1); Sodium 134 mmol/L (135-145); Very Low Density Lipoprotein 18 mg/dl (0-30); eGFR > 60.00
[2025-10-09] MEDS: ELIQUIS 5 MG PO (08:16)
[2025-10-09] MEDS: COZAAR 100 MG PO (08:26)
--- NOTE | 2025-10-09 09:15 | CON.ONC ---
Documented by User: SANDRA Chan 10/09/25 15:33
Consultation
-
Date Consultation Requested: 10/09/25
Date Consultation Performed: 10/09/25
Requesting Provider: Dr. Jennifer An
Performing Provider: Dr. Yang Jacobs
Reason for Consultation: APLS
Impression
Impression
CVA
aphasia/dysphagia
APLS
hx VTE
folate deficency
Plan
Plan
warfarin ideal in APLS -can bridge with UFH or LMWH if no concern for hemorrhagic conversion of CVA - if pt transitioned to warfarin then PCP management of INR recommended
start folic acid daily and continue at discharge
stroke management per neurology
Has OP follow up with Dr. Friend Jun 2026
Patient History
History of Present Illness
75yo F who presented with change in behavior, speech, left sided weakness, and facial droop. Her symptoms had been ongoing for [address] head showed regions of hypoattenuation at the anterior aspects of the bilateral basal ganglia, midline anterior
to the frontal horns of the lateral ventricles, and at the inferomedial aspect of the left lower lobe. The leading consideration would be acute or subacute ischemia, although in an atypical distributionCTA H/N showed high-grade stenosis or occlusion
of the A1 segments of the bilateral anterior cerebral arteries with significantly diminished flow in the bilateral anterior cerebral arteries further distally. Small caliber bilateral posterior cerebral arteries. Multifocal mild to moderate stenoses
of the bilateral middle and posterior cerebral arteries. Brain MRI Acute infarcts at the anterior aspects of the bilateral basal ganglia and the anteromedial bilateral frontal lobes. Other smaller scattered acute infarcts of the superomedial
bilateral frontal lobes and the left parietal lobe. Infarctions are centered within the bilateral anterior cerebral artery distribution.Chronic lacunar infarcts of the bilateral cerebellar hemispheres.
She has been complaint with her DOAC for her hx VTE.
Pt unable to provide hx due to aphagia. History obtained via chart review.
Afebrile, no hypoxia or hypotension
Past-Medical/Surgical History
PMH APLS, HTN, VTE 2019, HTN, posterior vitreous detachment
PSH breast cyst removal, left foot fracture
Social former smoker, significant ETOH or recreational drugs. Marred
Family mother ovarian ca, father colon ca
Patient Medication
�Medication �Instructions �Recorded �Confirmed �Last Taken �Type
apixaban 5 mg tablet (Eliquis) 5 mg PO BID Blood Clot 10/07/25 10/07/25 Unknown History
Prevention/Tx
ascorbic acid (vitamin C) 250 mg 250 mg PO DAILY Supplement 10/07/25 10/07/25 Unknown History
tablet (Vitamin C)
Active Medications
Generic Name Dose Route Start Last Admin
Trade Name Freq PRN Reason Stop Dose Admin
Acetaminophen 650 mg 10/08/25 09:24
Acetaminophen 650 Mg Rectal Suppository RECTAL 11/05/25 09:23
Q4HPRN PRN
ERICKSON, mild pain, or temp >100.4F
Acetaminophen 650 mg 10/08/25 09:24
Acetaminophen 325 Mg Tablet PO 11/05/25 09:23
Q4HPRN PRN
ERICKSON, mild pain, or temp >100.4F
Apixaban 5 mg 10/08/25 10:00 10/09/25 08:16
Apixaban (Eliquis) 5 Mg Tablet PO 11/04/25 09:59 5 mg
BID GAY Administration
Atorvastatin Calcium 80 mg 10/07/25 18:00 10/08/25 17:34
Atorvastatin (Lipitor) 80 Mg Tablet PO 11/04/25 17:59 80 mg
QPM GAY Administration
Losartan Potassium 100 mg 10/08/25 12:00 10/09/25 08:26
Losartan 100 Mg Tablet PO 11/05/25 11:59 100 mg
DAILY GAY Administration
Sodium Chloride 0 flush 10/07/25 16:00
Sodium Chloride 0.9% (Flush) Syringe IV 11/04/25 15:59
PER PROTOCOL GAY
Review of Systems
-
ROS is notable for HPI, otherwise negative
Physical Exam
-
General: No Apparent Distress
HEENT: Negative Jaundice
Pulmonary: Other (unlabored)
GI: Soft
Extremities: Pulses Present
Neurology: Other (aphasia)
Skin: Warm
Psych: Calm
Labs
Lab Results
WBC 7.5 10^3/uL (4.8-10.8) 10/09/25 06:14
RBC 3.66 10^6/uL (4.20-5.40) L 10/09/25 06:14
Hgb 10.5 g/dL (12.0-16.0) L 10/09/25 06:14
Hct 31.0 % (37.0-47.0) L 10/09/25 06:14
MCV 84.7 fL (81.0-99.0) 10/09/25 06:14
MCH 28.7 pg (27.0-31.0) 10/09/25 06:14
MCHC 33.9 g/dL (33.0-37.0) 10/09/25 06:14
RDW 16.3 % (11.5-14.5) H 10/09/25 06:14
Plt Count 217 10^3/uL (130-400) 10/09/25 06:14
MPV 9.3 fL (7.4-10.4) 10/09/25 06:14
Abs Immat Gran (auto) 0.1 10^3/uL (0-0.05) H 10/07/25 07:13
Absolute Neuts (auto) 7.8 10^3/uL (1.4-6.5) H 10/07/25 07:13
Absolute Lymphs (auto) 1.3 10^3/uL (1.2-3.4) 10/07/25 07:13
Absolute Monos (auto) 1.1 10^3/uL (0.1-0.6) H 10/07/25 07:13
Absolute Eos (auto) 0.1 10^3/uL (0-0.7) 10/07/25 07:13
Absolute Basos (auto) 0.0 10^3/uL (0-0.2) 10/07/25 07:13
Immature Gran % 0.5 % (0-0.5) 10/07/25 07:13
Neutrophils % 75.7 % (42.2-75.2) H 10/07/25 07:13
Lymphocytes % 12.4 % (20.5-51.1) L 10/07/25 07:13
Monocytes % 10.5 % (1.7-9.3) H 10/07/25 07:13
Eosinophils % 0.6 % (0-6) 10/07/25 07:13
Basophils % 0.3 % (0-2) 10/07/25 07:13
Creatinine 0.8 mg/dL (0.6-1.0) 10/09/25 06:14
Vital Signs
Vital Signs
Temp Pulse Resp BP Pulse Ox
98.2 F 87 18 181/97 95
10/09/25 08:00 10/09/25 08:00 10/09/25 08:00 10/09/25 08:00 10/09/25 08:00

Documented by User: Yang Jacobs MD 10/09/25 16:30
Plan
Plan
warfarin ideal in APLS -can bridge with UFH or LMWH if no concern for hemorrhagic conversion of CVA - if pt transitioned to warfarin then PCP management of INR recommended
start folic acid daily and continue at discharge
stroke management per neurology
Has OP follow up with Dr. Friend Jun 2026
Hematology Addendum:
Patient seen and evaluated and agree w/ BRIEFCASE SEWER note and plan as outlined
--- NOTE | 2025-10-09 09:37 | W.PN.HOSP.TC ---
Addendum entered and electronically signed by Sunday Lovett MD 10/09/25 21:17:
Attending Addendum-I saw and evaluated the patient. I reviewed the resident�s note and agree with findings and plan as documented in the resident�s note. Sub: Awake and alert. Apathetic. Feels fatigued. Denies neurological sxs ERICKSON vision changes
W/N/T in any extremity. Full 12 point ROS reviewed and negative except as documented Exam- vitals reviewed in EMR GEN-NAD Heart SM @ apex RRR Lungs clear no W/R/R abd soft NT ND pos BS LE no edema Neuro- AAOx3 following commands Psych-apathetic
Plan:
# Acute CVA
-secondary to APLS
-CTA H/N- High-grade stenosis or occlusion of the A1 segments of the bilateral anterior cerebral arteries with significantly diminished flow in the bilateral anterior cerebral arteries further distally. Small caliber bilateral posterior cerebral
arteries. Multifocal mild to moderate stenoses of the bilateral middle and posterior cerebral arteries.
-MRI Brain 10/08-Acute infarcts at the anterior aspects of the bilateral basal ganglia and the anteromedial bilateral frontal lobes. Other smaller scattered acute infarcts of the superomedial bilateral frontal lobes and the left parietal lobe.
Infarctions are centered within the bilateral anterior cerebral artery distribution.
-PT OT speech
-physiatry c/s rec acute rehab
-appreciate neuro and heme onc input
-cont high intensity statin
-DC eliquis- lovenox bridge to Coumadin first dose 7.5mg on 10/09
-no indication for thrombectomy or TNK (out of window)
-ECHO 10/08
1. Ejection fraction is 60-65% by visual assessment.
2. Right ventricular size and systolic function are within normal limits.
3. Moderate mitral valve regurgitation.
-avoid hypotension and hypoglycemia
# Antiphospholipid Syndrome
-h/o LLE DVT
-DC Eliquis -> transition to Coumadin with lovenox bridge first dose 7.5mg Coumadin on 10/09, dc lovenox when INR therapeutic (2-3)
-daily INR
-appreciate heme/onc input
# Dysphagia
-resolved
# HTN-uncontrolled > 24 hours permissive HTN- cont losartan add norvasc
# HLD-cont HI lipitor
# Hyponatremia-mild repeat BMP in am
# Hypokalemia- replete - repeat BMP in am
DVTp-warfarin+Lovenox bridge
Code-Full per
Dispo-DC to acute rehab- [facility] in [place]-bed available awaiting auth CM aware
Time spent coordinating care, review of plan of care with resident, personally reviewed records in EMR, med rec, consults, notes, labs, radiology, d/w nursing, CM neuro and heme/onc � 54 mins
Original Note:
Today's Communication/Plan
-
Dispo planning for rehab pending anticoagulation plans
Assessment / Plan
Assessment / Plan
IMPRESSION:75yoF PMH APS on eliquis, HLD, HTN presenting with acute stroke of bilateral KYLE.
AFVSS. Pt has been demonstrating personality differences, apathy, and lethargy for 3 days, aligning with the ischemic area found on CT of frontal lobes in KYLE area. Hx antiphospholipid syndrome unknown adherence to eliquis based on outpt visits. Hx
HLD total cholesterol 300 LDL 231 last lipid panel in June, refused statin. Prediabetic last A1c 5.7 06/2025 managing with lifestyle. Follows with hematology, last seen Dr Friend 11/2024. Not TNK or thrombectomy candidate due to chronicity
fo 3 days. Establish cause of stroke. Echo pending. MRI pending.
AFVSS. Pt more awake today answering questions. She reports taking eliquis every day as well as losartan 100mg. She endorses known heart murmur. Feels foggy without more symptoms. Hematology consulted for possible eliquis failure, will evaluate
tomorrow for heparin bridge to coumadin. MRI demonstrates acute and chronic infarcts. Speech re-evaluated and able to have diet and PO medications. Resume statin, eliquis.
Brain MRI: Acute infarcts at the anterior aspects of the bilateral basal ganglia and the anteromedial bilateral frontal lobes. Other smaller scattered acute infarcts of the superomedial bilateral frontal lobes and the left parietal lobe. Infarctions
are centered within the bilateral anterior cerebral artery distribution.
Chronic lacunar infarcts of the bilateral cerebellar hemispheres.
Today, AFVSS with elevated BP overnight. Started amlodipine 5mg to regulate BP. Continue statin, eliquis, losartan. She had increased alertness for part of the exam and then was unarousable following minimal commands. Plan for acute rehab. Being
evaluated by PM&R for placement. In discussion with heme and neuro regarding APS failure on eliquis vs stroke secondary to comorbidities HTN and HLD.
Communication with regarding plans.
PLAN:
#acute ischemic stroke
- Neurology consult
- Pending neuro recs: continue on eliquis currently; possible failure
- Echo pending
- normotensive goal; restart home losartan
- PT/OT/ST eval : reevaluated able to have diet and resume PO medications
- Normoglycemia goal
- MRI reveals acute and chronic strokes
- Continued personality changes
#HLD
- start statin 80mg atorvastatin
- total chol 300 LDL 232
#APS
- If tolerating PO, continue eliquis. Consider heparin drip to coumadin
#HTN
- monitor BP
- Restarted home losartan and added 5mg amlodipine to start
#dysphagia
- resolved today.
Code: Full
Diet: cholesterol lowering
Anticipated Discharge: 24 - 48 hours
Subjective/Interval History
-
Date of Service: October 09, 2025
Pt reports feeling better then yesterday. She denies feeling any symptoms.
Objective Data
-
Labs:
Laboratory Results
10/09/25
06:14
WBC 7.5
Hgb 10.5 L
Hct 31.0 L
Plt Count 217
Sodium 134 L
Potassium 3.3 L
Chloride 102
Carbon Dioxide 25
BUN 15
Creatinine 0.8
Glucose 128 H
Calcium 8.6
Vital Signs:
Vital Signs
Temp Pulse Resp BP Pulse Ox
98.2 F 87 18 181/97 95
10/09/25 08:00 10/09/25 08:00 10/09/25 08:00 10/09/25 08:00 10/09/25 08:00
I&O
10/08/25 10/09/25 10/10/25
06:59 06:59 06:59
Intake Total 460 / 460
Balance 460 / 460
Physical Exam
-
General: Well Developed, Well Nourished, No Apparent Distress and Comfortable
HEENT: Normocephalic, Atraumatic and Moist Mucous Membranes
Respiratory: Clear to Auscultation and Non Labored Respirations
Cardiac: Regular Rhythm and S1/S2
GI: Soft, Nontender and Nondistended
Musculoskeletal: No Edema
Skin: Warm and Dry
Neuro: AO x 3 (pt was alert when initially walked in, alertness waned during exam ), No Motor Deficits (followed commands initially but eventually kept eyes shut) and No Sensory Deficits
Psych: Calm and Other (apathy)
--- NOTE | 2025-10-09 10:55 | PTOTSP ---
Speech Language Pathology
Pt seen for cognitive-linguistic tx. Therapeutic reassessment completed via the [place] Cognitive Assessment (MOCA), version 8.2. Pt with an overall score of 16/30 where normal range is 26-30. Although pt typically with significantly slow
responses, when given pen and paper task, pt impulsive, starting task before listening to instructions. Flat affect noted. Decreased awareness noted with pt stating she was not having any difficulty. Attempted to address reading/writing as pt
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 During attempt to address reading/writing, pt closed eyes for 30 seconds with no response, then shook head yes that she was tired and needed a break.
Pt also seen for dysphagia tx. RN reported no difficulty with P.O. intake. Seen with P.O. trials of regular solids and thin liquids. Adequate mastication, bolus formation, and A-P transit noted with no oral residue. No overt signs of aspiration.
Recommend:
(1) Continue regular solids/thin liquids
(2) General aspiration precautinos
(3) Meds as tolerated
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 Further dysphagia tx not indicated at this time
[2025-10-09] MEDS: KCL 40 MEQ PO (11:29)
[2025-10-09] MEDS: NORVASC 5 MG PO (11:29)
[2025-10-09] MEDS: KCL 20 MEQ PO (13:30)
[2025-10-09] MEDS: FOLVITE 1 MG PO (17:02)
[2025-10-09] MEDS: LIPITOR 80 MG PO (17:02)
--- NOTE | 2025-10-09 17:18 | CON.MD ---
Consultation - Medical
-
Chief Complaint: Stroke
�
History of Present Illness:�75-year-old female with PMH (as below) presented to [facility] on 10/07/2025 with a 3-day history of acting abnormal and being more tired than usual. Also with decreased verbal output mostly nodding her head yes
or no. CT of the head with regions of hypoattenuation at the anterior aspects of the bilateral basal ganglia, middle anterior to the frontal horns of the lateral ventricles, and at the inferomedial aspect of the left lower lobe. Leading
consideration would be acute or subacute ischemia. CTA of the head and neck with high-grade stenosis or occlusion of A1 segments of bilateral anterior cerebral arteries with significantly diminished flow in the bilateral anterior cerebral arteries
further distally. Small caliber bilateral posterior cerebral arteries. Multifocal mild to moderate stenosis of the bilateral middle and posterior cerebral arteries. MRI of the brain 10/08 noting acute infarcts at the anterior aspects of the
bilateral basal ganglia and the anteromedial bilateral frontal lobes. Other smaller scattered acute infarcts of the superomedial bilateral frontal lobes and left parietal lobe. Infarctions are centered within the bilateral anterior cerebral artery
distribution. Seen by neurology and started on high intensity statin with restarting of Eliquis. Seen by hematology with plan to bridge to Coumadin.
She knows she had a stroke, limited speech. No pain, trouble swallowing, vision change, numbness or tingling.
�
Past Medical History:�HTN, hypertensive retinopathy, hypercholesterolemia, antiphospholipid antibody syndrome, DVT 2019 left lower extremity, posterior vitreous detachment, folate deficiency
Procedure History:�Breast cyst removal, left foot fracture
Family History:�Mother with ovarian cancer, father with colon cancer
�
Social History:�
Functional Level Premorbidly:�Independent with all activities�
Functional Level Currently:�Regular solid and thin liquid diet with general aspiration precautions per speech. Likely has aphasia and alexia/agraphia. Mod assist bed mobility and transfers. Ambulated 5 feet with rolling walker min assist.
�
Tobacco:�Former
Alcohol:�Occasional
Drug use:�Denies�
�
Lives with:�
24-hour assistance available:�No
Number of floors:�2
# steps to enter:�8
# steps to the second floor: full fllight
Driving:�Yes
Occupation:�Retired
�
�
Allergies:�
Allergy/AdvReac Type Severity Reaction Status Date / Time
No Known Drug Allergies Allergy Unknown Verified 07/03/25 18:29
�
Review of Systems:�limited with fatigue from speech
Constitutional: (x) abNormal _ tired
Eye: (x) Normal _
Ear/Nose/Throat: (x) Normal _
Respiratory: (x) Normal _
Cardiovascular: (x) Normal _
Gastrointestinal: (x) Normal _
Genitourinary: (x) Normal _
Musculoskeletal: (x) Normal _
Integumentary: (x) Normal _
Neurologic: (x) abNormal _ stroke with speech and movement difficulty.
Psychiatric: (x) Normal _
Endocrine: (x) Normal _
Hematologic/Lymphatic: (x) Normal _
Allergic/Immunologic: (x) Normal _
�
Medications:�
Active Current Visit Medication List
Category Date Time Status
Acetaminophen [Tylenol/Feverall] Med 10/08/25 09:24 Active
650 mg RECTAL Q4HPRN PRN
Acetaminophen [Tylenol] Med 10/08/25 09:24 Active
650 mg PO Q4HPRN PRN
Amlodipine [Norvasc] Med 10/09/25 12:00 Active
5 mg PO DAILY
Atorvastatin [Lipitor] Med 10/07/25 18:00 Active
80 mg PO QPM
Enoxaparin Sodium [Lovenox] Med 10/09/25 20:00 Active
60 mg SC Q12H
FOLic ACID [Folvite] Med 10/09/25 16:00 Active
1 mg PO DAILY
Flush (0.9% Sodium Chloride) [Flush (Nss)] Med 10/07/25 16:00 Active
See Dose Instructions IV PER PROTOCOL
Losartan [Cozaar] Med 10/08/25 12:00 Active
100 mg PO DAILY
Warfarin [Coumadin] Med 10/09/25 18:00 Active
7.5 mg PO QPM
�
Vitals:�
Temp Pulse Resp BP Pulse Ox
98.8 F 81 14 143/61 96
10/09/25 22:32 10/09/25 22:32 10/09/25 22:32 10/09/25 22:32 10/09/25 22:32
Height 5 ft 3 in
Actual Weight 62 kg
Body Mass Index (BMI) 24.2
�
Physical Exam:�
General Appearance/Observation: Well-developed, well-nourished female in no apparent distress.�
Pain/Comfort Assessment: Denies�
Mood/Affect: Flat�
�
Integumentary/Operative Site:�
�� Pressure Ulcer Evaluation: absent over heels.�
�
Eyes: Conjunctiva/Lids: normal��� Pupils: pupils equal round and reactive to light
Ears/Nose/Throat: oral mucosa moist, throat clear.������������ Lips/Teeth/Gums: normal
Neck: No muscle spasm or tenderness�
Cardiovascular: Heart: regular, no murmur�
Pulses: dorsalis pedis 2+ bilaterally�
Respiratory: Respiratory Effort/Chest Expansion: normal������ Auscultation: Clear to auscultation bilaterally
Gastrointestinal: abdomen not tender, no distension, normal abdominal bowel sounds
Genitourinary: No Elise�
Rectal Exam: Deferred�
Extremities:�Edema: None�Cyanosis: None�Trophic�changes: None
�
Neurology Exam:
Orientation: Alert, Oriented to self, Time, Place�
Memory: Intact for recent medical concerns
Repetition: impaired
Comprehension: Intact
Two step command: Intact
Cranial Nerves:
�� CNII:�Pupillary light reflex: Intact���Visual Field: Intact
�� CN III, IV, : Extraocular muscles: Intact�
�� CN V:�Facial Sensation�at�Forehead: Intact,�Maxilla: Intact,�Mandible: Intact
�� CN VII:�Facial movement: decreased on left
�� CN VIII:�Hearing: Normal
�� CN IX/X:�Speech & swallow: slow rate of speech, difficulty with hypophonia,�limited output Position of Uvula: Midline
�� CN XI:�Shoulder shrug: decreased on the left
�� CN XII:�Tongue protrusion: Midline
Sensory:
�� Light touch: Intact in bilateral upper and lower extremities
�
Reflexes:
�� Biceps: 2+ bilaterally
�� Brachioradialis: 2+ bilaterally
�� Triceps: 2+ bilaterally
�� Patellar: 2+ bilaterally
�� Achilles: 2+ bilaterally
�� Babinski: Down going right, upgoing left
�� Clonus: None
�� Betty: Negative bilaterally�
Cerebellar: Dysmetria/Ataxia: present on right�
Musculoskeletal: Motor: (Manual muscle scale 0-5)�
Muscle SA EF WE EE FF FA HF KE DF EHL PF
Right� 4 5 5 4 5 4 4 5 5 5 5
Left 4 4 4 4 4 4 3 4 4 4 4
�
Tone: Normal in all extremities�
Range of Motion: Passively within normal limits in all extremities�
�
Lab Results
Laboratory Data
10/09/25 06:14
10/09/25 06:14
Total Bilirubin 0.7 mg/dl (0.2-1.3) 10/07/25 09:24
AST 42 U/L (14-36) H 10/07/25 09:24
ALT 16 U/L (0-35) 10/07/25 09:24
Alkaline Phosphatase 40 U/L (38-126) 10/07/25 09:24
Total Protein 7.2 g/dl (6.3-8.2) 10/07/25 09:24
Albumin 4.3 g/dl (3.5-5.0) 10/07/25 09:24
�
Diagnostic Results:�as per HPI�
�
Assessment
75 y/o R-handed F PMH (HTN, hypertensive retinopathy, hypercholesterolemia, antiphospholipid antibody syndrome, DVT 2019 left lower extremity, posterior vitreous detachment, folate deficiency) with 10/07/2025 acute infarcts at the anterior aspects
of the bilateral basal ganglia and the anteromedial bilateral frontal lobes with plan to bridge to Coumadin.
Plan�
PM&R�PT/OT to increase independence with ADLs, improve balance, coordination, endurance, strength, mobility, community reintegration, decreased burden of care on others and family education.�
�
CVA: Secondary prophylaxis with Lovenox bridge to warfarin, statin, and blood pressure control (SBP less than 180 and diastolic less than 100 to participate with therapy for ischemic stroke). Continue to monitor neurologic status.�
Left nondominant hemiparesis: Safety reinforced.�
- Avoid using affected arm to help lift or pull patient as this will cause trauma to the shoulder.
Dysarthria: speech �
Aphasia: speech �
HTN: amlodipine 5 mg daily, losartan 100 mg daily, monitor closely�
HLD: Statin�
Antiphospholipid antibody syndrome: Lovenox bridge to warfarin
History of DVT: Lovenox bridge to Coumadin.�
Anemia: 10.5 from 9.6, folate.� Continue to monitor.�
�
Psych: Psychology consult.� Monitor mood, medications as needed.�
Skin: monitor for pressure sores/rashes/lesions.�
Pain: acetaminophen as needed.�
Bowel: Colace and Senna, PRN bisacodyl.�
Bladder: Time void, PVRs, PRN straight cath.�
Pulmonary: Incentive spirometry�
Safety: Continue to reinforce assistance with all transfers.�
Code Status:� Full code
Dispo�(date/plan/equipment needs): Home with family care.� Social history reviewed.�
Functional and Medical Goals:�Modified Independent with ADL�s, ambulation, transfers�
Discharge Destination:�Acute inpatient rehabilitation�
�
�
Thank you for allowing me to care for your patient. Please contact me with any questions or concerns.
Consultation
-
Date/Time Consultation Requested: 10/08/25
Date/Time Consultation Performed: 10/09/25
Requesting Provider: Dr. Sunday Lovett
Performing Provider: Dr. Montrell Wesley
Reason for Consultation: Stroke
[2025-10-09] MEDS: COUMADIN 7.5 MG PO (17:23)
--- NOTE | 2025-10-09 18:41 | CM ---
CM is working on acute rehab placement. There is no available bed at [facility] in [place], but bed is available at [facility] for patient on 10/10/25. Spoke with patient's . He is agreeable to [facility] [place]. Will need to
obtain authorization from patient's insurance. IMM given to patient's .
[facility] [place]
#for Report- [phone]
fax# [phone]
Plan: [facility] [place] 10/10
[2025-10-09 20:21] LABS: Glucose - Point of Care 130 mg/dl (70-99)
--- NOTE | 2025-10-09 20:50 | PTCARENOTE ---
RN in with pt to complete NIH and assessment. Pt difficult to keep awake keeps closing eyes mid assessment and uncooperative stating she is tired. RN attempted to complete NIH multiple times but pt uncooperative, NIH scored an 8 initially. PETROLEUM REFINING EQUIPMENT OPERATOR Natalie
made aware. PETROLEUM REFINING EQUIPMENT OPERATOR at bedside to see pt, pt more alert and cooperative, NIH score 6 with PETROLEUM REFINING EQUIPMENT OPERATOR at bedside. No further orders. See NIH for scoring.
[2025-10-09] MEDS: LOVENOX 60 MG SC (21:02)
--- NOTE | 2025-10-09 22:51 | W.PN.UPDATE ---
Update Note
Progress Note Update
Per nursing patient uncooperative with NIH assessment. Upon assessment pt AAOX3. Pt is slow to respond but answers questions appropriately. Pt assessment appears similar to prior noted assessments. Patient does have +1 BLLE, and has difficulty
lifting them but able push down and up equally with some weakness. VSS. Nursing to continue to monitor.
[2025-10-10] VITALS (7 sets, daily range): BP systolic 111–197; BP diastolic 58–110
[2025-10-10 06:06] LABS: Hematocrit 33.4 % (37.0-47.0); Hemoglobin 11.3 g/dL (12.0-16.0); Mean Corp Hgb Conc. 33.8 g/dL (33.0-37.0); Mean Corpuscular Volume 83.3 fL (81.0-99.0); Platelet Count 239 10^3/uL (130-400); Red Cell Dist. Width 16.3 % (11.5-14.5)
[2025-10-10 06:14] LABS: INR 1.22; PT 15.5 Sec (11.4-14.6)
[2025-10-10 06:31] LABS: Blood Urea Nitrogen 13 mg/dl (7-17); Calcium 9.2 mg/dl (8.4-10.2); Carbon Dioxide 27 mmol/L (22-30); Chloride 102 mmol/L (98-107); Estimated Creatinine Clearance 50 ml/min; Glucose 112 mg/dl (70-99); Potassium 3.9 mmol/L (3.5-5.1); Sodium 135 mmol/L (135-145); eGFR > 60.00
[2025-10-10] MEDS: LOVENOX 60 MG SC ×2 (08:06→21:29)
[2025-10-10] MEDS: FOLVITE 1 MG PO (08:06)
[2025-10-10] MEDS: COZAAR 100 MG PO (08:06)
[2025-10-10] MEDS: NORVASC 5 MG PO (08:07)
[2025-10-10] MEDS: LOPRESSOR 12.5 MG PO ×2 (11:49→21:28)
--- NOTE | 2025-10-10 12:32 | PTCARENOTE ---
PT in to see pt. B/P taken and elevated RUE 197/110 and LUE 161/107. HR also elevated into the 110's. Dr Arthur on the floor. Notified of both. Lopressor 12.5mg po given as ordered at 1149. B/P rechecked at 1220 RUE 170/101. HR remains 110-120's.
Will recheck when appropriate.
--- NOTE | 2025-10-10 13:07 | CM ---
Chart reviewed and plan is for acute rehab at [facility], case hardener reached out to [place] in admissions at [facility], physical therapy unable to ambulate patient today due to BP, OOB activity held.
Plan; Acute rehab at [facility] needs Auth.
--- NOTE | 2025-10-10 15:53 | W.PN.HOSP.TC ---
Addendum entered and electronically signed by Sadie Arthur MD 10/10/25 16:32:
I saw and evaluated the patient independently. I reviewed and discussed the resident�s note and agree with findings and plan as documented by Dr. Cagle.
GENERAL: well developed, well nourished, female in no apparent distress--flat affect
HEENT: NC/AT
HEART: regular rate and rhythm, +S1, +S2, tachy
LUNGS : clear to auscultation bilaterally
ABDOM: soft, nontender, nondistended, + bowel sounds
EXT: no cyanosis, clubbing, or edema
NEUROLOGIC: decreased strength to bilateral LE
Acute CVA (confirmed by MRI)--due to antiphospholipid antibody syndrome (out of window for TNK)--Eliquis not appropriate drug--need coumadin with INR goal 2.5-3.5 or 4--bridging with lovenox--PT/OT/speech--for acute rehab at [facility], apprec PM&R--CTA
head and neck with high grade stenosis at A1 seg of bilateral anterior cerebral arteries --apprec neuro--cont high dose statin--ECHO 10/08 with nml EF and mild MR
Antiphospholipid Syndrome --HX of LLE DVT--apprec heme--d/c Eliquis with transition to coumadin
Dysphagia-resolved
HTN-uncontrolled > 24 hours permissive HTN- cont losartan and norvasc --added Lopressor 12.5mg BID due to elevated BP and HR
HLD-- high dose statin
Hyponatremia--resolved
Hypokalemia- replete as needed
DVT proph---warfarin+Lovenox bridge
Code status--Full per
Dispo-DC to acute rehab- [facility] in [place]-bed available awaiting auth CM aware
Original Note:
Today's Communication/Plan
-
added Lopressor 12.5 mg BID for elevated bl.pr 9197/110) to Novsac and Losartan
INR level check at 4pm
continue Coumadin with Lovenox bridge first dose 7.5mg Coumadin on 10/09, dc Lovenox when INR therapeutic (2.5-3.5)
PT/OT evaluation
Assessment / Plan
Assessment / Plan
IMPRESSION:75yoF PMH APS on eliquis, HLD, HTN presenting with acute stroke of bilateral KYLE.
AFVSS. Pt has been demonstrating personality differences, apathy, and lethargy for 3 days, aligning with the ischemic area found on CT of frontal lobes in KYLE area. Hx antiphospholipid syndrome unknown adherence to eliquis based on outpt visits. Hx
HLD total cholesterol 300 LDL 231 last lipid panel in June, refused statin. Prediabetic last A1c 5.7 06/2025 managing with lifestyle. Follows with hematology, last seen Dr Friend 11/2024. Not TNK or thrombectomy candidate due to chronicity
fo 3 days. Establish cause of stroke. Echo pending. MRI pending.
AFVSS. Pt more awake today answering questions. She reports taking eliquis every day as well as losartan 100mg. She endorses known heart murmur. Feels foggy without more symptoms. Hematology consulted for possible eliquis failure, will evaluate
tomorrow for heparin bridge to coumadin. MRI demonstrates acute and chronic infarcts. Speech re-evaluated and able to have diet and PO medications. Resume statin, eliquis.
Brain MRI: Acute infarcts at the anterior aspects of the bilateral basal ganglia and the anteromedial bilateral frontal lobes. Other smaller scattered acute infarcts of the superomedial bilateral frontal lobes and the left parietal lobe. Infarctions
are centered within the bilateral anterior cerebral artery distribution.
Chronic lacunar infarcts of the bilateral cerebellar hemispheres.
10/09/2025, AFVSS with elevated BP overnight. Started amlodipine 5mg to regulate BP. Continue statin, eliquis, losartan. She had increased alertness for part of the exam and then was unarousable following minimal commands. Plan for acute rehab.
Being evaluated by PM&R for placement. In discussion with heme and neuro regarding APS failure on eliquis vs stroke secondary to comorbidities HTN and HLD.
10/10/2025: AFVSS, elevated blood pr 197/110 , Lopressor added 12.5mg BID
Communication with regarding plans.
# Acute CVA
-secondary to APLS
-CTA H/N- High-grade stenosis or occlusion of the A1 segments of the bilateral anterior cerebral arteries with significantly diminished flow in the bilateral anterior cerebral arteries further distally. Small caliber bilateral posterior cerebral
arteries. Multifocal mild to moderate stenoses of the bilateral middle and posterior cerebral arteries.
-MRI Brain 10/08-Acute infarcts at the anterior aspects of the bilateral basal ganglia and the anteromedial bilateral frontal lobes. Other smaller scattered acute infarcts of the superomedial bilateral frontal lobes and the left parietal lobe.
Infarctions are centered within the bilateral anterior cerebral artery distribution.
-PT OT speech
-physiatry c/s rec acute rehab
-appreciate neuro and heme onc input
-cont high intensity statin
-DC eliquis- lovenox bridge to Coumadin first dose 7.5mg on 10/09 , discontinue Lovenox when INR 2.5-3.5
-no indication for thrombectomy or TNK (out of window)
-ECHO 10/08
1. Ejection fraction is 60-65% by visual assessment.
2. Right ventricular size and systolic function are within normal limits.
3. Moderate mitral valve regurgitation.
-avoid hypotension and hypoglycemia
# Antiphospholipid Syndrome
-h/o LLE DVT
-DC Eliquis -> transition to Coumadin with lovenox bridge first dose 7.5mg Coumadin on 10/09, dc lovenox when INR therapeutic (2.3-3.5)
-daily INR
-appreciate heme/onc input
# Dysphagia
-resolved
# HTN-uncontrolled > 24 hours permissive HTN- cont losartan and norvasc
--added lepressor 12.5mg BID due to elevated bl.pr
# HLD-cont HI lipitor
# Hyponatremia-mild repeat BMP in am
# Hypokalemia- replete - repeat BMP in am
DVTp-warfarin+Lovenox bridge
Code-Full per
Dispo-DC to acute rehab- [facility] in [place]-bed available awaiting auth CM aware
Anticipated Discharge: > 48 hours
Subjective/Interval History
-
Date of Service: October 10, 2025
last night was not responded to the nurse but her vitals were stable. Today she is oriented x3 and alert and was slow but was able to answer the questions. Her blood pressure elevated this morning 197/110 and Lopressor 12.5mg was given stat. She
denied shortness of breath, chest pain, abdominal pain. She was able to move all her extremities with minimal raising her legs.
Objective Data
-
Labs:
Laboratory Results
10/10/25 10/10/25
05:25 16:00
WBC 8.5
Hgb 11.3 L
Hct 33.4 L
Plt Count 239
PT 15.5 H Pending
INR 1.22 Pending
Sodium 135
Potassium 3.9
Chloride 102
Carbon Dioxide 27
BUN 13
Creatinine 0.8
Glucose 112 H
Calcium 9.2
Vital Signs:
Vital Signs
Temp Pulse Resp BP Pulse Ox
99.3 F 113 16 148/104 95
10/10/25 15:00 10/10/25 15:00 10/10/25 15:00 10/10/25 15:00 10/10/25 15:00
I&O
10/09/25 10/10/25 10/11/25
06:59 06:59 06:59
Intake Total 460 / 460 480 / 480 240 / 240
Balance 460 / 460 480 / 480 240 / 240
Review of Systems
-
History Source: Patient
All other systems: Reviewed and negative
Physical Exam
-
General: Well Developed, Well Nourished, No Apparent Distress and Comfortable
HEENT: Normocephalic, Atraumatic and Moist Mucous Membranes
Respiratory: Clear to Auscultation and Non Labored Respirations
Cardiac: Regular Rhythm and S1/S2
GI: Soft, Nontender and Nondistended
Musculoskeletal: No Edema
Skin: Warm and Dry
Neuro: AO x 3 (pt was alert when initially walked in, alertness waned during exam ), No Motor Deficits (followed commands initially but eventually kept eyes shut) and No Sensory Deficits
Psych: Calm and Other (apathy)
[2025-10-10 16:38] LABS: INR 1.25; PT 15.8 Sec (11.4-14.6)
[2025-10-10] MEDS: COUMADIN 7.5 MG PO (17:09)
[2025-10-10] MEDS: LIPITOR 80 MG PO (17:10)
[2025-10-11] VITALS (7 sets, daily range): BP systolic 130–180; BP diastolic 70–96; PULSE 82; O2SAT 97
[2025-10-11 07:38] LABS: Hematocrit 32.9 % (37.0-47.0); Hemoglobin 11.1 g/dL (12.0-16.0); Mean Corp Hgb Conc. 33.7 g/dL (33.0-37.0); Mean Corpuscular Volume 83.7 fL (81.0-99.0); Platelet Count 222 10^3/uL (130-400); Red Cell Dist. Width 16.3 % (11.5-14.5)
[2025-10-11 07:45] LABS: INR 1.28; PT 16.1 Sec (11.4-14.6)
[2025-10-11] MEDS: LOPRESSOR 12.5 MG PO ×2 (08:03→20:19)
[2025-10-11] MEDS: NORVASC 5 MG PO (08:03)
[2025-10-11] MEDS: COZAAR 100 MG PO (08:03)
[2025-10-11] MEDS: LOVENOX 60 MG SC ×2 (08:03→20:19)
[2025-10-11] MEDS: FOLVITE 1 MG PO (08:05)
[2025-10-11 08:17] LABS: Blood Urea Nitrogen 18 mg/dl (7-17); Calcium 9.0 mg/dl (8.4-10.2); Carbon Dioxide 27 mmol/L (22-30); Chloride 102 mmol/L (98-107); Estimated Creatinine Clearance 45 ml/min; Glucose 110 mg/dl (70-99); Potassium 3.9 mmol/L (3.5-5.1); Sodium 136 mmol/L (135-145); eGFR > 60.00
--- NOTE | 2025-10-11 13:37 | W.PN.HOSP.TC ---
Addendum entered and electronically signed by Sadie Arthur MD 10/11/25 16:42:
I saw and evaluated the patient independently. I reviewed and discussed the resident�s note and agree with findings and plan as documented by Dr. Cagle.
GENERAL: well developed, well nourished, female in no apparent distress--flat affect
HEENT: NC/AT
HEART: regular rate and rhythm, +S1, +S2
LUNGS : clear to auscultation bilaterally
ABDOM: soft, nontender, nondistended, + bowel sounds
EXT: no cyanosis, clubbing, or edema
NEUROLOGIC: decreased strength to bilateral LE
Acute CVA (confirmed by MRI)--due to antiphospholipid antibody syndrome (out of window for TNK)--Eliquis not appropriate drug--need coumadin with INR goal 2.5-3.5 or 4--bridging with lovenox--PT/OT/speech--for acute rehab at [facility], apprec PM&R--CTA
head and neck with high grade stenosis at A1 seg of bilateral anterior cerebral arteries --apprec neuro--cont high dose statin--ECHO 10/08 with nml EF and mild MR
Antiphospholipid Syndrome --HX of LLE DVT--apprec heme--d/c Eliquis with transition to coumadin
Dysphagia-resolved
HTN-uncontrolled > 24 hours permissive HTN- cont losartan and norvasc --added Lopressor 12.5mg BID due to elevated BP and HR --much improved
HLD-- high dose statin
Hyponatremia--resolved
Hypokalemia- replete as needed
DVT proph---warfarin+Lovenox bridge
Code status--Full per
Dispo-DC to acute rehab- [facility] in [place]-bed available awaiting auth CM aware
Original Note:
Today's Communication/Plan
-
Continue Lovenox bridge to Coumadin 7.5 mg daily first dose started on 10/09/2025
Continue daily INR level check
PT/OT evaluation ordered today
Speech therapy evaluation today
Assessment / Plan
Assessment / Plan
IMPRESSION:75yoF PMH APS on eliquis, HLD, HTN presenting with acute stroke of bilateral KYLE.
AFVSS. Pt has been demonstrating personality differences, apathy, and lethargy for 3 days, aligning with the ischemic area found on CT of frontal lobes in KYLE area. Hx antiphospholipid syndrome unknown adherence to eliquis based on outpt visits. Hx
HLD total cholesterol 300 LDL 231 last lipid panel in June, refused statin. Prediabetic last A1c 5.7 06/2025 managing with lifestyle. Follows with hematology, last seen Dr Friend 11/2024. Not TNK or thrombectomy candidate due to chronicity
fo 3 days. Establish cause of stroke. Echo pending. MRI pending.
AFVSS. Pt more awake today answering questions. She reports taking eliquis every day as well as losartan 100mg. She endorses known heart murmur. Feels foggy without more symptoms. Hematology consulted for possible eliquis failure, will evaluate
tomorrow for heparin bridge to coumadin. MRI demonstrates acute and chronic infarcts. Speech re-evaluated and able to have diet and PO medications. Resume statin, eliquis.
Brain MRI: Acute infarcts at the anterior aspects of the bilateral basal ganglia and the anteromedial bilateral frontal lobes. Other smaller scattered acute infarcts of the superomedial bilateral frontal lobes and the left parietal lobe. Infarctions
are centered within the bilateral anterior cerebral artery distribution.
Chronic lacunar infarcts of the bilateral cerebellar hemispheres.
10/09/2025, AFVSS with elevated BP overnight. Started amlodipine 5mg to regulate BP. Continue statin, eliquis, losartan. She had increased alertness for part of the exam and then was unarousable following minimal commands. Plan for acute rehab.
Being evaluated by PM&R for placement. In discussion with heme and neuro regarding APS failure on eliquis vs stroke secondary to comorbidities HTN and HLD.
10/10/2025: AFVSS, elevated blood pr 197/110 , Lopressor added 12.5mg BID
Communication with regarding plans.
# Acute CVA
-secondary to APLS
-CTA H/N- High-grade stenosis or occlusion of the A1 segments of the bilateral anterior cerebral arteries with significantly diminished flow in the bilateral anterior cerebral arteries further distally. Small caliber bilateral posterior cerebral
arteries. Multifocal mild to moderate stenoses of the bilateral middle and posterior cerebral arteries.
-MRI Brain 10/08-Acute infarcts at the anterior aspects of the bilateral basal ganglia and the anteromedial bilateral frontal lobes. Other smaller scattered acute infarcts of the superomedial bilateral frontal lobes and the left parietal lobe.
Infarctions are centered within the bilateral anterior cerebral artery distribution.
-PT OT speech
-physiatry c/s rec acute rehab
-appreciate neuro and heme onc input
-cont high intensity statin
-DC eliquis- lovenox bridge to Coumadin first dose 7.5mg on 10/09 , discontinue Lovenox when INR 2.5-3.5
-no indication for thrombectomy or TNK (out of window)
-ECHO 10/08
1. Ejection fraction is 60-65% by visual assessment.
2. Right ventricular size and systolic function are within normal limits.
3. Moderate mitral valve regurgitation.
-avoid hypotension and hypoglycemia
# Antiphospholipid Syndrome
-h/o LLE DVT
-DC Eliquis -> transition to Coumadin with lovenox bridge first dose 7.5mg Coumadin on 10/09, dc lovenox when INR therapeutic (2.3-3.5)
-daily INR
-appreciate heme/onc input
# Dysphagia
-resolved
# HTN-uncontrolled > 24 hours permissive HTN- cont losartan and norvasc
--added lepressor 12.5mg BID due to elevated bl.pr
# HLD-cont HI lipitor
# Hyponatremia-mild repeat BMP in am
# Hypokalemia- replete - repeat BMP in am
DVTp-warfarin+Lovenox bridge
Code-Full per
Dispo-DC to acute rehab- [facility] in [place]-bed available awaiting auth CM aware
Anticipated Discharge: > 48 hours
Subjective/Interval History
-
Date of Service: October 11, 2025
patient was not responding to the commands last night and the NIH total score yesterday was 2 and today morning was 3. Patient is alert and oriented salow in responding to the question but she was able to answer them. denied headache, chest pain ,
shortness of breath.
Objective Data
-
Labs:
Laboratory Results
10/11/25
07:21
WBC 9.8
Hgb 11.1 L
Hct 32.9 L
Plt Count 222
PT 16.1 H
INR 1.28
Sodium 136
Potassium 3.9
Chloride 102
Carbon Dioxide 27
BUN 18 H
Creatinine 0.9
Glucose 110 H
Calcium 9.0
Vital Signs:
Vital Signs
Temp Pulse Resp BP Pulse Ox
98.5 F 93 18 180/96 97
10/11/25 11:45 10/11/25 11:45 10/11/25 11:45 10/11/25 11:45 10/11/25 11:45
I&O
10/10/25 10/11/25 10/12/25
06:59 06:59 06:59
Intake Total 480 / 480 480 / 480
Balance 480 / 480 480 / 480
[2025-10-11] MEDS: COUMADIN 7.5 MG PO (17:12)
[2025-10-11] MEDS: LIPITOR 80 MG PO (17:13)
[2025-10-12 03:15] VITALS: BP 154/86
[2025-10-12 07:15] VITALS: BP 122/78
[2025-10-12] MEDS: LOVENOX 60 MG SC (07:55)
[2025-10-12] MEDS: LOPRESSOR 12.5 MG PO (07:55)
[2025-10-12] MEDS: COZAAR 100 MG PO (07:56)
[2025-10-12] MEDS: FOLVITE 1 MG PO (07:56)
[2025-10-12] MEDS: NORVASC 5 MG PO (07:56)
[2025-10-12 07:58] LABS: Hematocrit 32.9 % (37.0-47.0); Hemoglobin 11.2 g/dL (12.0-16.0); Mean Corp Hgb Conc. 34.0 g/dL (33.0-37.0); Mean Corpuscular Volume 84.4 fL (81.0-99.0); Platelet Count 235 10^3/uL (130-400); Red Cell Dist. Width 16.4 % (11.5-14.5)
[2025-10-12 08:01] LABS: INR 1.41; PT 17.4 Sec (11.4-14.6)
[2025-10-12 08:38] LABS: Blood Urea Nitrogen 15 mg/dl (7-17); Calcium 9.0 mg/dl (8.4-10.2); Carbon Dioxide 26 mmol/L (22-30); Chloride 101 mmol/L (98-107); Estimated Creatinine Clearance 50 ml/min; Glucose 104 mg/dl (70-99); Potassium 3.9 mmol/L (3.5-5.1); Sodium 134 mmol/L (135-145); eGFR > 60.00
--- NOTE | 2025-10-12 09:42 | W.PN.HOSP.TC ---
Today's Communication/Plan
-
Continue Coumadin with Lovenox bridge first dose 7.5mg Coumadin on 10/09, dc Lovenox when INR therapeutic (2.3-3.5)
Patient discharged today to Acute Rehab at [facility]
regional branch manager consulted for discharge arrangement plan
Patient contacted and discussed the discharge plan
Assessment / Plan
Assessment / Plan
IMPRESSION:75yoF PMH APS on eliquis, HLD, HTN presenting with acute stroke of bilateral KYLE.
AFVSS. Pt has been demonstrating personality differences, apathy, and lethargy for 3 days, aligning with the ischemic area found on CT of frontal lobes in KYLE area. Hx antiphospholipid syndrome unknown adherence to eliquis based on outpt visits. Hx
HLD total cholesterol 300 LDL 231 last lipid panel in June, refused statin. Prediabetic last A1c 5.7 06/2025 managing with lifestyle. Follows with hematology, last seen Dr Friend 11/2024. Not TNK or thrombectomy candidate due to chronicity
fo 3 days. Establish cause of stroke. Echo pending. MRI pending.
AFVSS. Pt more awake today answering questions. She reports taking eliquis every day as well as losartan 100mg. She endorses known heart murmur. Feels foggy without more symptoms. Hematology consulted for possible eliquis failure, will evaluate
tomorrow for heparin bridge to coumadin. MRI demonstrates acute and chronic infarcts. Speech re-evaluated and able to have diet and PO medications. Resume statin, eliquis.
Brain MRI: Acute infarcts at the anterior aspects of the bilateral basal ganglia and the anteromedial bilateral frontal lobes. Other smaller scattered acute infarcts of the superomedial bilateral frontal lobes and the left parietal lobe. Infarctions
are centered within the bilateral anterior cerebral artery distribution.
Chronic lacunar infarcts of the bilateral cerebellar hemispheres.
10/09/2025, AFVSS with elevated BP overnight. Started amlodipine 5mg to regulate BP. Continue statin, eliquis, losartan. She had increased alertness for part of the exam and then was unarousable following minimal commands. Plan for acute rehab.
Being evaluated by PM&R for placement. In discussion with heme and neuro regarding APS failure on eliquis vs stroke secondary to comorbidities HTN and HLD.
10/10/2025: AFVSS, elevated blood pr 197/110 , Lopressor added 12.5mg BID
10/10/2025 AFSS , No new symptoms
Communication with regarding plans every day.
# Acute CVA
-secondary to APLS
-CTA H/N- High-grade stenosis or occlusion of the A1 segments of the bilateral anterior cerebral arteries with significantly diminished flow in the bilateral anterior cerebral arteries further distally. Small caliber bilateral posterior cerebral
arteries. Multifocal mild to moderate stenoses of the bilateral middle and posterior cerebral arteries.
-MRI Brain 10/08-Acute infarcts at the anterior aspects of the bilateral basal ganglia and the anteromedial bilateral frontal lobes. Other smaller scattered acute infarcts of the superomedial bilateral frontal lobes and the left parietal lobe.
Infarctions are centered within the bilateral anterior cerebral artery distribution.
-PT OT speech
-physiatry c/s rec acute rehab
-appreciate neuro and heme onc input
-cont high intensity statin
-DC eliquis- lovenox bridge to Coumadin first dose 7.5mg on 10/09 , discontinue Lovenox when INR 2.5-3.5
-no indication for thrombectomy or TNK (out of window)
-ECHO 10/08
1. Ejection fraction is 60-65% by visual assessment.
2. Right ventricular size and systolic function are within normal limits.
3. Moderate mitral valve regurgitation.
-avoid hypotension and hypoglycemia
# Antiphospholipid Syndrome
-h/o LLE DVT
-DC Eliquis -> transition to Coumadin with lovenox bridge first dose 7.5mg Coumadin on 10/09, dc Lovenox when INR therapeutic (2.3-3.5)
-daily INR until it reaches therapeutic level 2.5-3.5
- INR 1.22--1.25--1.28--1.41
-appreciate heme/onc input
# Dysphagia
-resolved
# HTN-uncontrolled > 24 hours permissive HTN- cont losartan and norvasc
--added lepressor 12.5mg BID due to elevated bl.pr
# HLD-cont HI lipitor
# Hyponatremia-mild repeat BMP in am
# Hypokalemia- replete - repeat BMP in am
DVTp-warfarin+Lovenox bridge
Code-Full per
Dispo-DC to acute rehab- [facility] in [place]-bed available awaiting auth CM aware
Anticipated Discharge: Today
Subjective/Interval History
-
Date of Service: October 12, 2025
No overnight events. She was preparing to brush her teeth. She is alert Oriented, still speaking slowly but was able to answer the questions. She denied headaches , chest pain, shortness of breath or changes in bowel movements.
Objective Data
-
Labs:
Laboratory Results
10/12/25
06:44
WBC 9.4
Hgb 11.2 L
Hct 32.9 L
Plt Count 235
PT 17.4 H
INR 1.41
Sodium 134 L
Potassium 3.9
Chloride 101
Carbon Dioxide 26
BUN 15
Creatinine 0.8
Glucose 104 H
Calcium 9.0
Vital Signs:
Vital Signs
Temp Pulse Resp BP Pulse Ox
98.2 F 79 16 122/78 100
10/12/25 07:15 10/12/25 07:15 10/12/25 07:15 10/12/25 07:15 10/12/25 07:15
I&O
10/11/25 10/12/25 10/13/25
06:59 06:59 06:59
Intake Total 480 / 480 700 / 700
Balance 480 / 480 700 / 700
Review of Systems
-
History Source: Patient
All other systems: Reviewed and negative
Physical Exam
-
General: Well Developed, Well Nourished, No Apparent Distress and Comfortable
HEENT: Normocephalic, Atraumatic and Moist Mucous Membranes
Respiratory: Clear to Auscultation and Non Labored Respirations
Cardiac: Regular Rhythm and S1/S2
GI: Soft, Nontender and Nondistended
Musculoskeletal: No Edema
Skin: Warm and Dry
Neuro: AO x 3 (pt was alert when initially walked in, alertness waned during exam ), No Motor Deficits (followed commands initially but eventually kept eyes shut) and No Sensory Deficits
Psych: Calm and Other (apathy)
--- NOTE | 2025-10-12 11:19 | CM ---
CM obtained authorization from [facility] for acute rehab placement and ambulance. [facility] has accepted patient:
authorization for Acute Rehab at [facility]- approved 7 days (10/12- 10/19/25) auth# [id number]
ambulance authorization- #[id number]
[facility] [place]
# for Report= [phone]
fax#- [phone]
[2025-10-12 11:40] VITALS: BP 136/78
[2025-10-12 15:48] VITALS: BP 147/75
--- NOTE | 2025-10-13 22:01 | W.DCSUMMARY ---
Documented by User: Jenise Cagle MD, Resident 10/14/25 21:14
Discharge Summary
Discharge Data
Date of Admission: 10/07/25
Date of Discharge: 10/12/25
-
Pending Results: No
Hospital Course
Discharging Physician:
Yang Krueger
Jenise Cagle
Disposition
Acute Rehab Facility
Primary Care Physician:
None
Principal Discharge Diagnosis:
CVA
Hypertension
Hyperlipidemia
Antiphospholipid syndrome
Chronic discharge Diagnosis:
Hyperlipidemia , Hypertension, Antiphospholipid syndrome.
He reports pt abruptly acting abnormal 3 days ago. He describes his seeming off and more tired than usual. Last conversation with full words 4 days before the admission, otherwise said she nods yes or no. brought her in since he
sated that yesterday overnight she was on the toilet and was not leaving, concerning him. denies noticing facial asymmetry, weakness on 1 side. He explained that she is in need of L knee surgery and has been in PT for it, so she has trouble
getting around and seems weaker on that side at baseline
Hospital Course:
75 years old female presented to the hospital per her who was on her bedside stated that she has been having 3 days
history of fatigue, decreased responsiveness, apathy, and not speaking full sentences. Patient sat on toilet all night without moving which prompted to call ambulance. Patient was not responding to verbal stim, only painful stim, not
following commands. patient was admitted to rule out stroke.
Brain MRI was done which showed acute infarcts at the anterior aspects of the bilateral basal ganglia and the anteromedial bilateral frontal lobes. Other smaller scattered acute infarcts of the superomedial bilateral frontal lobes and the left
parietal lobe. Infarctions are centered within the bilateral anterior cerebral artery distribution.Chronic lacunar infarcts of the bilateral cerebellar hemispheres.
CTA of head and neck as shown below. Hematology oncology consulted and Eliquis discontinued and started on warfarin 7.5mg which is ideal for APLS and bridged with Lovenox on 10/09/2025, INR has been checked daily for the goal to reach 2.5-3.5 to
stop the Lovenox. She was not a candidate for TNK/IAT due to being outside of the time window.
Folic acid was low and started on folic acid. Her blood pressure elevated during hospitalization started on losartan home meds and then Norvasc added to control her bl. pr. Neurology consulted and her LDL 232 , goal less than 70 she started in
atorvastatin 40mg then increased to 80mg daily. She has been evaluated by speech therapist for dysphagia and PT/OT who recommended acute rehab placement after discharge. Her blood pressure has been elevated and started on Lopressor 12.5 mg BID PO.
She discharged to acute rehab- [facility] in [place]. Her INR at the day of discharge 1.41. INR will be checked daily for warfarin dose adjustment and to stop Lovenox when INR reached therapeutic level 2.5-3.5. Discharged in stable condition and
to follow u with neurologist and PCP as an outpatient visit.
Important Imaging:
Echocardiogram 10/08/2025
1. Ejection fraction is 60-65% by visual assessment.
2. Right ventricular size and systolic function are within normal limits.
3. Moderate mitral valve regurgitation.
4. Mild to moderate tricuspid regurgitation. Estimated pulmonary artery pressure of 43 mmHg assuming a right atrial pressure of 3 mmHg.
5. There are no prior studies available for comparis
MRI of the brain 10/08/2025
Acute infarcts at the anterior aspects of the bilateral basal ganglia and the anteromedial bilateral frontal lobes. Other smaller scattered acute infarcts of the superomedial bilateral frontal lobes and the left parietal lobe. Infarctions are
centered within the bilateral anterior cerebral artery distribution.
Chronic lacunar infarcts of the bilateral cerebellar hemispheres.
CT Head & Neck Angio W/wo IV 10/08/2025
High-grade stenosis or occlusion of the A1 segments of the bilateral anterior cerebral arteries with significantly diminished flow in the bilateral anterior cerebral arteries further distally. Small caliber bilateral posterior cerebral arteries.
Multifocal mild to moderate stenoses of the bilateral middle and posterior cerebral arteries.
No high-grade stenosis or occlusion in the arterial vasculature in the neck.
Head CT scan 11/08/2024
Regions of hypoattenuation at the anterior aspects of the bilateral basal ganglia, midline anterior to the frontal horns of the lateral ventricles, and at the inferomedial aspect of the left lower lobe. The leading consideration would be acute or
subacute ischemia, although in an atypical distribution.
Left mastoid effusion.
Discharge Plan
-
Patient Disposition: Acute Rehab Facility
Discharge Diagnosis/Procedures: CVA
HTN
HLD
APS
Condition: Fair
Diet: As tolerated and Regular
Additional Diets: Regular solid and thin liquid diet with general aspiration precautions
Activity: As tolerated
Driving Restrictions: Not until seen by your Dr
Bathing Restrictions: None
Blood Work: INR blood test daily until it reached the level between 2.5 and 3.5 and
Other Services: PT and OT
Referrals:
Amado Cannon MD [Active, Neurology] - in one to two weeks
Reggie Wagner MD, Resident [Family Practice Resident Year1, General] - in less than 1 week
Referral Note: If you dont have a PCP please call this number to schedule an appt with PCP #[phone]
UNKNOWN - PT NOT,INTERVIEWE [Family Provider]
Additional Discharge Medication Instructions: Continue lovenox until INR at goal 2.3-3.5 then stop it.
Please follow up with your PCP within a week
Please follow up with neurologist in 1 to two weeks
Prescriptions:
New
atorvastatin 80 mg Tablet
80 mg PO QPM 30 Days Qty: 30 0RF
warfarin [Jantoven] 7.5 mg Tablet
7.5 mg PO QPM Qty: 30 0RF
losartan 100 mg Tablet
100 mg PO DAILY Qty: 30 0RF
enoxaparin 60 mg/0.6 mL Syringe
60 mg SC Q12H Qty: 6 0RF
amlodipine 5 mg Tablet
5 mg PO DAILY 30 Days Qty: 30 0RF
Continued
ascorbic acid (vitamin C) [Vitamin C] 250 mg Tablet
250 mg PO DAILY
Discontinued
Eliquis 5 mg Tablet
5 mg PO BID
Discharge Orders:
Discharge Patient (As Directed); Ordered 10/12/25
Ordered By: Jenise Cagle
Discharge Date and Time
Discharge Date/Time: 10/12/25 17:45
Print Language: LIBERIAN

Documented by User: Yang Krueger DO 10/15/25 09:05
Discharge Summary
Discharge Data
Date of Admission: 10/07/25
Date of Discharge: 10/12/25
Total time spent discharging patient (in min): 32
Discharge Plan
-
Patient Disposition: Acute Rehab Facility
Discharge Diagnosis/Procedures: CVA
HTN
HLD
APS
Condition: Fair
Diet: As tolerated and Regular
Additional Diets: Regular solid and thin liquid diet with general aspiration precautions
Activity: As tolerated
Driving Restrictions: Not until seen by your Dr
Bathing Restrictions: None
Blood Work: INR blood test daily until it reached the level between 2.5 and 3.5 and
Other Services: PT and OT
Referrals:
Amado Cannon MD [Active, Neurology] - in one to two weeks
Reggie Wagner MD, Resident [Family Practice Resident Year1, General] - in less than 1 week
Referral Note: If you dont have a PCP please call this number to schedule an appt with PCP #[phone]
UNKNOWN - PT NOT,INTERVIEWE [Family Provider]
Additional Discharge Medication Instructions: Continue lovenox until INR at goal 2.3-3.5 then stop it.
Please follow up with your PCP within a week
Please follow up with neurologist in 1 to two weeks
Prescriptions:
New
atorvastatin 80 mg Tablet
80 mg PO QPM 30 Days Qty: 30 0RF
warfarin [Jantoven] 7.5 mg Tablet
7.5 mg PO QPM Qty: 30 0RF
losartan 100 mg Tablet
100 mg PO DAILY Qty: 30 0RF
enoxaparin 60 mg/0.6 mL Syringe
60 mg SC Q12H Qty: 6 0RF
amlodipine 5 mg Tablet
5 mg PO DAILY 30 Days Qty: 30 0RF
Continued
ascorbic acid (vitamin C) [Vitamin C] 250 mg Tablet
250 mg PO DAILY
Discontinued
Eliquis 5 mg Tablet
5 mg PO BID
Discharge Orders:
Discharge Patient (As Directed); Ordered 10/12/25
Ordered By: Jenise Cagle
Discharge Date and Time
Discharge Date/Time: 10/12/25 17:45
Print Language: LIBERIAN
== END 2025-10-12 17:45 | DRG 65 ==
LOC: 4 WEST ACU 14:30
PROVIDERS: Physician Assistant; Specialist Research Data Abstracter/Coder; ADMITTING PHYSICIAN Family Medicine; ATTENDING PHYSICIAN Internal Medicine; CONSULT PHYSICIAN Internal Medicine Hematology & Oncology; CONSULT PHYSICIAN Physical Medicine & Rehabilitation; CONSULT PHYSICIAN Psychiatry & Neurology Neurology; EMERGENCY PHYSICIAN Emergency Medicine
DX: I63.523 Cerebral infarction due to unspecified occlusion or stenosis of bilateral anterior cerebral arteries (principal); D68.61 Antiphospholipid syndrome; G81.94 Hemiplegia, unspecified affecting left nondominant side; E87.1 Hypo-osmolality and hyponatremia; R13.10 Dysphagia, unspecified; I10 Essential (primary) hypertension; E78.00 Pure hypercholesterolemia, unspecified; R73.03 Prediabetes; R47.01 Aphasia; R29.810 Facial weakness; E53.8 Deficiency of other specified B group vitamins; E87.6 Hypokalemia; D64.9 Anemia, unspecified; F01.50 Vascular dementia, unspecified severity, without behavioral disturbance, psychotic disturbance, mood disturbance, and anxiety; Z91.148 Patient's other noncompliance with medication regimen for other reason; Z86.718 Personal history of other venous thrombosis and embolism; Z86.73 Personal history of transient ischemic attack (TIA), and cerebral infarction without residual deficits; Z79.01 Long term (current) use of anticoagulants; Z87.891 Personal history of nicotine dependence
CPT/HCPCS: 70450; 70496; 70498; 70551; 80048; 80053; 80061; 80306; 81003; 81015; 82077; 82607; 82728; 82746; 82962; 83036; 84443; 85025; 85027; 85610; 87086; 92507; 92523; 92526; 92610; 93005; 93306; 97163; 97167; 97530; 99285; Q9967